=== PATIENT | female | born 1965 | race Caucasian/White ===

== ENCOUNTER 2019-11-27 09:58 | Outpatient (CLI) | payer MEDICARE, MEDICAID, SELFPAY | END 2019-11-27 09:59 | disposition home or self-care (01) | PROVIDERS: PCP Emergency Medicine; Visit Provider Emergency Medicine | DX: E03.9 Hypothyroidism, unspecified (principal) | CPT/HCPCS: 36415; 84443 ==

== ENCOUNTER 2019-11-27 10:06 | Outpatient (CLI) | payer MEDICARE, MEDICAID, SELFPAY ==
[2019-11-27 10:45] LABS: Alanine Aminotransferase 20 U/L (4-35); Albumin Level 3.9 g/dL (3.5-5.1); Alkaline Phosphatase 52 U/L (38-126); Aspartate Amino Transferase 23 U/L (14-36); Bilirubin,Total 0.5 mg/dL (0.2-1.3)
== END 2019-11-27 10:07 | disposition home or self-care (01) ==
PROVIDERS: PCP Emergency Medicine; Visit Provider Podiatrist Foot & Ankle Surgery
DX: B35.1 Tinea unguium (principal)
CPT/HCPCS: 36415; 80076; 84443

== ENCOUNTER 2019-12-30 12:29 | Outpatient (CLI) | payer MEDICARE, MEDICAID, SELFPAY ==
[2019-12-30 13:13] LABS: Alanine Aminotransferase 17 U/L (4-35); Alkaline Phosphatase 47 U/L (38-126); Aspartate Amino Transferase 22 U/L (14-36); Bilirubin,Total 0.7 mg/dL (0.2-1.3); Blood Urea Nitrogen 20 mg/dL (7-17); Calcium 8.4 mg/dL (8.4-10.2); Carbon Dioxide 27 mmol/L (22-30); Chloride 103 mmol/L (98-107); Estimated Glomerular Filt Rate 58; Glucose 86 mg/dL (65-105); Potassium 3.6 mmol/L (3.4-5.0); Sodium 138 mmol/L (137-145)
== END 2019-12-30 12:30 | disposition home or self-care (01) ==
PROVIDERS: Visit Provider Emergency Medicine
DX: E78.5 Hyperlipidemia, unspecified (principal); B35.1 Tinea unguium
CPT/HCPCS: 36415; 80053; 82248

== ENCOUNTER 2020-08-09 17:10 | Emergency (ER) | payer MEDICARE, MEDICAID, SELFPAY ==
[2020-08-09 17:19] VITALS: BP 132/80; PULSE 91; RESP 16; TEMP 36.6; O2SAT 100
--- NOTE | 2020-08-09 17:30 | ED.GENADULT ---
HPI - General Adult General Chief complaint: Ear Stated complaint: Ear Pain Time Seen by Provider: 08/09/20 17:30 Source: patient and RN notes reviewed Mode of arrival: ambulatory Limitations: no limitations History of Present Illness HPI narrative: 55-year-old female presents with complaints of bilateral otalgia, RT ear fullness feeling for the past 5-7 days. Symptoms increasing over the last 24-48 hours with decrease hearing to RT ear. Debrox without relief. Denies drainage or tinnitus. Denies injury to ear. No rhinorrhea and nasal congestion. LMP hysterectomy. The patient reports she have not been diagnosed with COVID-19. The patient reports she is not waiting for the results of a COVID-19 lab test. The patient reports she do not have fever, chills, weakness, or fatigue. The patient reports she do not have a new or worsening cough or shortness of breath. Denies chest pain. The patient reports she do not have any rhinorrhea, congestion, sore throat, loss of taste, nausea, vomiting, abdominal pain, and diarrhea. Tolerating po intake well. Denies recent traveling. Denies concerns for COVID-19 or exposures been home with limited outdoor exposure except for essential household needs, work, and return home. At this time, patient is not suspected of having COVID-19. Some parts of this dictation were generated by voice recognition software and may contain typographical and/or grammatical inaccuracies. Related Data Home Medications Medication Instructions Recorded Confirmed estradiol 2 mg tablet 2 mg PO DAILY 09/12/19 08/09/20 topiramate 25 mg tablet 25 mg PO BID 09/12/19 08/09/20 oxycodone-acetaminophen 5 mg-325 1 tablet PO TID PRN tablet 11/26/19 08/09/20 mg tablet Allergies Allergy/AdvReac Type Severity Reaction Status Date / Time nitrofurantoin Allergy Unknown Hives Verified 08/09/20 17:26 NITROFURANTOIN MACROCRYSTAL Allergy Mild Hives Uncoded 08/09/20 17:26 Review of Systems Review of Systems: Narrative: CONSTITUTIONAL: Denies fever, chills, sweats. EYES: Denies visual changes, redness, discharge. ENT: Denies sore throat, rhinorrhea, congestion, ear drainage. Complains of bilateral otalgia, RT ear decrease hearing. CARDIOVASCULAR: Denies chest pain, palpitations, edema. RESPIRATORY: Denies dyspnea, wheezing, cough. GASTROINTESTINAL: Denies abdominal pain, nausea, vomiting, diarrhea. SKIN: Denies rash or itching. MUSCULOSKELETAL: Denies acute back pain, joint pain, or myalgia. NEUROLOGIC: Denies numbness or focal weakness. PSYCHIATRIC: Denies anxiety or depression. All systems reviewed & are unremarkable except as noted in HPI and below. PENDING SALE TO [facility] Past Medical History Medical History (Updated 08/10/20 @ 00:00 by Godfrey Lopez) B12 deficiency delivery delivered Chronic pain Depression Hypothyroidism (acquired) Mucocele of lower lip Ovarian cyst Surgical History Surgical History (Updated 08/09/20 @ 17:55 by FABRICIO Abraham) H/O section History of cholecystectomy History of colonoscopy History of esophagogastroduodenoscopy History of exploratory laparotomy History of hysterectomy Family History Family History Mother Cerebrovascular accident Family history of diabetes mellitus in first degree relative Diabetes mellitus Family history of kidney disease Family history of cardiovascular disease Father Cerebrovascular accident Family history of diabetes mellitus in first degree relative Diabetes mellitus Family history of cardiovascular disease Other Family history of throat cancer Social History Social History (Updated 08/09/20 @ 17:46 by FABRICIO Abraham) Smoking status: Never smoker Tobacco type: cigarettes Second hand tobacco smoke exposure: No Alcohol intake: current Substance use: current Substance use type: marijuana Living arrangements: with family Occupation/
== END 2020-08-09 17:54 | disposition home or self-care (01) ==
PROVIDERS: Emergency Provider Nurse Practitioner Family; PCP Emergency Medicine
DX: H66.92 Otitis media, unspecified, left ear (principal); E03.9 Hypothyroidism, unspecified
CPT/HCPCS: 99213; G0463

== ENCOUNTER 2020-09-07 08:14 | Outpatient (CLI) | payer MEDICARE, MEDICAID, SELFPAY ==
[2020-09-07 08:47] LABS: Basophils Percent Auto 0.6 % (0.2-1.2); Eosinophils Absolute Auto 0.2 K/mm3 (0-0.3); Eosinophils Percent Auto 2.4 % (0-4.4); Hemoglobin 11.5 g/dL (12.0-15.0); Immature Granulocyte Absolute 0.02 K/mm3 (0.00-0.031); Immature Granulocyte Percent A 0.3 % (0-0.5); Lymphocytes Absolute Auto 2.38 K/mm3 (0.9-3.2); Lymphocytes Percent Auto 35.6 % (18.3-44.2); Mean Corpuscular HGB Conc 33.8 g/dl (32-36); Mean Corpuscular Hemoglobin 30.7 pg (26-34); Mean Corpuscular Volume 90.7 fl (80-100); Mean Platelet Volume 10.6 fl (7.4-10.4); Monocytes Absolute Auto 0.4 K/mm3 (0.1-0.6); Monocytes Percent Auto 6.1 % (2.6-8.5); Neutrophils Absolute Auto 3.7 K/mm3 (1.3-6.7); Platelet Count Result 181 k/mm3 (150-375); Red Blood Count 3.75 M/mm3 (4.2-5.4); Red Cell Distribution Width 12.9 % (11.5-14.5); White Blood Count 6.7 K/mm3 (4.5-10.0)
[2020-09-07 09:00] LABS: Alanine Aminotransferase 16 U/L (4-35); Albumin Level 3.6 g/dL (3.5-5.1); Alkaline Phosphatase 46 U/L (38-126); Anion Gap 3 mmol/L (8-16); Aspartate Amino Transferase 25 U/L (14-36); Bilirubin,Total 0.7 mg/dL (0.2-1.3); Blood Urea Nitrogen 23 mg/dL (7-17); Calcium 8.8 mg/dL (8.4-10.2); Carbon Dioxide 33 mmol/L (22-30); Chloride 102 mmol/L (98-107); Cholesterol 146 mg/dL (0-200); Estimated Glomerular Filt Rate 58; Glucose 83 mg/dL (65-105); HDL Direct 97 mg/dL; Sodium 138 mmol/L (137-145); Triglycerides 103 mg/dL (<150)
[2020-09-07 09:10] LABS: LDL Cholesterol Direct 46 mg/dL
== END 2020-09-07 08:15 | disposition home or self-care (01) ==
PROVIDERS: PCP Emergency Medicine; Visit Provider Emergency Medicine
DX: E78.5 Hyperlipidemia, unspecified (principal)
CPT/HCPCS: 36415; 80053; 80061; 84443; 85025

== ENCOUNTER → 2020-12-21 01:16 | Outpatient (CLI) | payer MEDICARE, MEDICAID, SELFPAY ==
[2020-12-21 19:47] LABS: SARS-CoV-2 RNA PCR Negative
== END ==
PROVIDERS: PCP Emergency Medicine; Visit Provider Internal Medicine Gastroenterology
DX: Z01.812 Encounter for preprocedural laboratory examination (principal); Z20.822 Contact with and (suspected) exposure to COVID-19
CPT/HCPCS: C9803; U0003; U0005

== ENCOUNTER 2020-12-24 00:57 | Day surgery (SDC) | payer MEDICARE, MEDICAID, SELFPAY ==
[2020-12-12 13:37] VITALS: BMI 33.2
[2020-12-24 06:57] VITALS: BMI 32.8
--- NOTE | 2020-12-24 07:25 | PM.HPGS ---
History of Present Illness History of Present Illness Consent: Risks, benefits, and alternatives have been discussed and questions answered. Patient agrees to proceed with procedure. Chief complaint: Neoplasm Screening Narrative: Kathy Franco is a 55 year old female referred for change in bowel habits. First the past several years she has had very loose and quite urgent bowel movements. She also has lower abdominal pain and cramping. She had seen a card game operator who performed an exam including ultrasound, and nothing was found. She has had a total hysterectomy in the past. Review of Systems Review of Systems: All systems reviewed & are unremarkable except as noted in HPI and below PMFSH Past Medical History Medical History B12 deficiency delivery delivered Chronic pain Depression Hypothyroidism (acquired) Mucocele of lower lip Ovarian cyst Surgical History Surgical History H/O section History of cholecystectomy History of colonoscopy History of esophagogastroduodenoscopy History of exploratory laparotomy History of hysterectomy Family History Family History Mother Cerebrovascular accident Family history of diabetes mellitus in first degree relative Diabetes mellitus Family history of kidney disease Family history of cardiovascular disease Father Cerebrovascular accident Family history of diabetes mellitus in first degree relative Diabetes mellitus Family history of cardiovascular disease Other Family history of throat cancer Social History Social History Smoking status: Never smoker Tobacco type: cigarettes Second hand tobacco smoke exposure: No Alcohol intake: current Drinks per week: 2 Substance use: current Substance use type: marijuana Living arrangements: alone Additional occupation/education comments: Disable Gender identity (if verbalized by the patient): Female Spiritual care concerns: No Meds Home Medications and Allergies Home Medications Medication Instructions Recorded Confirmed Type estradiol 2 mg tablet 2 mg PO DAILY 09/12/19 12/12/20 History topiramate 25 mg tablet 25 mg PO BID 09/12/19 12/12/20 History oxycodone-acetaminophen 5 mg-325 1 tablet PO TID PRN tablet 11/26/19 12/12/20 History mg tablet phentermine 37.5 mg capsule 37.5 mg PO DAILY #30 cap 11/28/19 12/12/20 Rx alprazolam 0.5 mg tablet 0.5 mg PO BID PRN #60 tablet 04/25/20 12/12/20 Rx levothyroxine 75 mcg tablet See Rx Instructions .ROUTE 06/25/20 12/12/20 Rx .COMPLEX #90 tablet meloxicam 15 mg tablet See Rx Instructions .ROUTE 07/12/20 12/12/20 Rx .COMPLEX #90 tablet fluticasone propionate [Allergy 1 spray NASAL BID #16 ml 08/09/20 12/12/20 Rx Relief (fluticasone)] gabapentin 300 mg capsule See Rx Instructions .ROUTE 11/25/20 12/12/20 Rx .COMPLEX #90 cap spironolactone 25 mg tablet See Rx Instructions .ROUTE 11/29/20 12/12/20 Rx .COMPLEX #90 tablet venlafaxine 150 mg See Rx Instructions .ROUTE 11/29/20 12/12/20 Rx capsule,extended release 24 hr .COMPLEX #180 cap ibuprofen [Motrin] 800 mg PO TID 12/12/20 12/12/20 History sodium,potassium,mag sulfates 17.5 See Rx Instructions PO .COMPLEX 12/12/20 Rx gram-3.13 gram-1.6 gram oral soln #354 ml bupropion HCl 75 mg tablet 75 mg PO BID #180 tablet 12/17/20 Rx tizanidine 4 mg tablet See Rx Instructions .ROUTE 12/17/20 Rx .COMPLEX #180 tablet trazodone 50 mg tablet See Rx Instructions .ROUTE 12/17/20 Rx .COMPLEX #180 tablet Allergies Allergy/AdvReac Type Severity Reaction Status Date / Time nitrofurantoin Allergy Mild Hives Verified 12/24/20 07:12 Exam Resp: Auscultation: clear to auscultation bilaterally Cardio: Rate: regular rate Rhythm: regular rhythm GI: GI Pa
--- NOTE | 2020-12-24 07:29 | WPDANESEPPF ---
Anes - Initial Pre Proc Eval Procedure: Operation Date: 12/24/20 08:00 Proposed Procedures p Screening Colonoscopy - Guzman Rivera MD Date/Time: 12/24/20 07:29 Surgeon: Guzman Rivera MD Pre Op Diagnosis: Neoplasm Screening Patient Data Age: 55 Gender: F Height: 5 ft 9 in Weight: 101 kg Allergies Allergy/AdvReac Type Severity Reaction Status Date / Time nitrofurantoin Allergy Mild Hives Verified 12/24/20 07:12 Home Medications Medication Instructions Recorded Confirmed Type estradiol 2 mg tablet 2 mg PO DAILY 09/12/19 12/12/20 History topiramate 25 mg tablet 25 mg PO BID 09/12/19 12/12/20 History oxycodone-acetaminophen 5 mg-325 1 tablet PO TID PRN tablet 11/26/19 12/12/20 History mg tablet phentermine 37.5 mg capsule 37.5 mg PO DAILY #30 cap 11/28/19 12/12/20 Rx alprazolam 0.5 mg tablet 0.5 mg PO BID PRN #60 tablet 04/25/20 12/12/20 Rx levothyroxine 75 mcg tablet See Rx Instructions .ROUTE 06/25/20 12/12/20 Rx .COMPLEX #90 tablet meloxicam 15 mg tablet See Rx Instructions .ROUTE 07/12/20 12/12/20 Rx .COMPLEX #90 tablet fluticasone propionate [Allergy 1 spray NASAL BID #16 ml 08/09/20 12/12/20 Rx Relief (fluticasone)] gabapentin 300 mg capsule See Rx Instructions .ROUTE 11/25/20 12/12/20 Rx .COMPLEX #90 cap spironolactone 25 mg tablet See Rx Instructions .ROUTE 11/29/20 12/12/20 Rx .COMPLEX #90 tablet venlafaxine 150 mg See Rx Instructions .ROUTE 11/29/20 12/12/20 Rx capsule,extended release 24 hr .COMPLEX #180 cap ibuprofen [Motrin] 800 mg PO TID 12/12/20 12/12/20 History sodium,potassium,mag sulfates 17.5 See Rx Instructions PO .COMPLEX 12/12/20 Rx gram-3.13 gram-1.6 gram oral soln #354 ml bupropion HCl 75 mg tablet 75 mg PO BID #180 tablet 12/17/20 Rx tizanidine 4 mg tablet See Rx Instructions .ROUTE 12/17/20 Rx .COMPLEX #180 tablet trazodone 50 mg tablet See Rx Instructions .ROUTE 12/17/20 Rx .COMPLEX #180 tablet Patient hx anesthesia problems: none Family hx anesthesia problems: none PMFSH Past Medical History Medical History B12 deficiency delivery delivered Chronic pain Depression Hypothyroidism (acquired) Mucocele of lower lip Ovarian cyst Surgical History Surgical History H/O section History of cholecystectomy History of colonoscopy History of esophagogastroduodenoscopy History of exploratory laparotomy History of hysterectomy Family History Family History Mother Cerebrovascular accident Family history of diabetes mellitus in first degree relative Diabetes mellitus Family history of kidney disease Family history of cardiovascular disease Father Cerebrovascular accident Family history of diabetes mellitus in first degree relative Diabetes mellitus Family history of cardiovascular disease Other Family history of throat cancer Social History Social History Smoking status: Never smoker Tobacco type: cigarettes Second hand tobacco smoke exposure: No Alcohol intake: current Drinks per week: 2 Substance use: current Substance use type: marijuana Living arrangements: alone Additional occupation/education comments: Disable Gender identity (if verbalized by the patient): Female Spiritual care concerns: No Anes - Eval Final PreProcedure Day of Procedure 12/24/20 07:29 Patient weight: obese Heart: regular rate and rhythm Airway: Mallampati scale class 1 and class II Neurological: alert and oriented Last oral intake: >/= 8 hours ASA classification: III Emergent: no Anesthetic plan: proceed Anesthesia type and monitoring: general GIVS and standard monitoring Informed Consent: The patient's anesthetic plan and its attendant risks and benefits were discusse
[2020-12-24] MEDS: LACTATED RINGERS 1,000 ML 100 ML IV CONT (07:31)
[2020-12-24 08:25] VITALS: BP 105/69; PULSE 87; RESP 20; O2SAT 100
[2020-12-24 08:35] VITALS: BP 105/69; PULSE 72; RESP 18; O2SAT 100
[2020-12-24 08:45] VITALS: BP 107/67; PULSE 70; RESP 18; O2SAT 100
== END 2020-12-24 09:18 | disposition home or self-care (01) ==
PROVIDERS: PCP Emergency Medicine; Visit Provider Internal Medicine Gastroenterology
PROC: 0DJD8ZZ Inspection of Lower Intestinal Tract, Via Natural or Artificial Opening Endoscopic (ICD-10-PCS; CPT 45378; principal; 2020-12-24 08:00)
DX: K59.1 Functional diarrhea (principal); R10.30 Lower abdominal pain, unspecified; E03.9 Hypothyroidism, unspecified; E53.8 Deficiency of other specified B group vitamins; F32.9 Major depressive disorder, single episode, unspecified; G89.29 Other chronic pain; F12.90 Cannabis use, unspecified, uncomplicated; E66.9 Obesity, unspecified; Z68.32 Body mass index [BMI] 32.0-32.9, adult
CPT/HCPCS: 45380; 88305; C9803; J2704; J7120; U0003; U0005

== ENCOUNTER 2021-01-24 16:05 | Emergency (ER) | payer MEDICARE, MEDICAID, SELFPAY ==
--- NOTE | ~2021-01-24 | US_ITS ---
EXAMINATION: US venous doppler [facility] DATE: 01/24/2021 16:56 INDICATION: Lower limb pain TECHNIQUE: Sihn scale images without and with compression and Doppler images of the bilateral lower e xtremity veins were obtained. COMPARISON: 08/07/2019 FINDINGS: The right common femoral vein, profunda femoral vein, femoral vein, popliteal vein, peroneal trunk, p osterior tibial veins, and greater saphenous vein are patent. The left common femoral vein, profunda femoral vein, femoral vein, popliteal vein, peroneal trunk, po sterior tibial veins, and greater saphenous vein are patent. IMPRESSION: 1. Patent bilateral lower extremity veins. No evidence of deep venous thrombosis. Reviewed, dictated and finalized at location A. IMPRESSION: 1. Patent bilateral lower extremity veins. No evidence of deep venous thrombosi s.
[2021-01-24 16:27] VITALS: BP 116/64; PULSE 97; RESP 18; TEMP 36.3; O2SAT 97
--- NOTE | 2021-01-24 18:37 | ED.GENADULT ---
HPI - General Adult General Chief complaint: Extremity Problem,Nontraumatic <SAL Martinez Last Filed: 01/24/21 18:45> Stated complaint: poss DVT <Ramon Smith PA-C - Last Filed: 01/24/21 18:45> Time Seen by Provider: 01/24/21 17:38 <SAL Martinez Last Filed: 01/24/21 18:45> Source: patient <SAL Martinez Last Filed: 01/24/21 18:45> Mode of arrival: ambulatory <SAL Martinez Last Filed: 01/24/21 18:45> Limitations: no limitations <SAL Martinez Last Filed: 01/24/21 18:45> History of Present Illness HPI narrative: Patient is a 55-year-old female who presents to emergency department for evaluation of right leg pain and redness that began at 1 AM in the morning after she had been lying in bed patient denies injury or trauma notes aching pain presents in no distress has not taken anything for symptoms and is otherwise in no distress on arrival denies similar occurrence in the past. <SAL Martinez Last Filed: 01/24/21 18:45> Related Data Home medications: Home Medications Medication Instructions Recorded Confirmed estradiol 2 mg tablet 2 mg PO DAILY 09/12/19 12/12/20 oxycodone-acetaminophen 5 mg-325 1 tablet PO TID PRN tablet 11/26/19 12/12/20 mg tablet ibuprofen 800 mg PO TID 12/12/20 12/12/20 topiramate 25 mg tablet 25 mg PO DAILY tablet 01/13/21 <SAL Martinez Last Filed: 01/24/21 18:45> Allergies/adverse reactions: Allergies Allergy/AdvReac Type Severity Reaction Status Date / Time nitrofurantoin Allergy Mild Hives Verified 12/24/20 07:12 <SAL Martinez Last Filed: 01/24/21 18:45> Review of Systems Review of Systems: All systems reviewed & are unremarkable except as noted in HPI and below <SAL Martinez Last Filed: 01/24/21 18:45> PMFSH Past Medical History Medical History: Medical History B12 deficiency delivery delivered Chronic pain Depression Hypothyroidism (acquired) Mucocele of lower lip Ovarian cyst <Ramon Smith PA-C - Last Filed: 01/24/21 18:45> Surgical History Surgical History: Surgical History H/O section History of cholecystectomy History of colonoscopy History of esophagogastroduodenoscopy History of exploratory laparotomy History of hysterectomy <Ramon Smith PA-C - Last Filed: 01/24/21 18:45> Family History Family History: Family History Mother Cerebrovascular accident Family history of diabetes mellitus in first degree relative Diabetes mellitus Family history of kidney disease Family history of cardiovascular disease Father Cerebrovascular accident Family history of diabetes mellitus in first degree relative Diabetes mellitus Family history of cardiovascular disease Other Family history of throat cancer <Ramon Smith PA-C - Last Filed: 01/24/21 18:45> Social History Social History: Social History Smoking status: Never smoker Tobacco type: cigarettes Second hand tobacco smoke exposure: No Alcohol intake: current Drinks per week: 2 Substance use: current Substance use type: marijuana Additional occupation/education comments: Disable Gender identity (if verbalized by the patient): Female Spiritual care concerns: No <Ramon Smith PA-C - Last Filed: 01/24/21 18:45> Exam Narrative: Exam Narrative: GENERAL: Well-appearing, well-nourished, and in no acute distress. HEAD: Normocephalic, atraumatic. EYES: PERRLA and EOMI. ENT: Nares clear, no rhinorrhea or epistaxis. Mucous membranes moist. CHEST: Clear to auscultation. No respiratory distress. No wheezes rales or rhonchi HEART: Regular rate and
== END 2021-01-24 18:56 | disposition home or self-care (01) ==
PROVIDERS: Emergency Provider General Practice; PCP Emergency Medicine
DX: L03.115 Cellulitis of right lower limb (principal); E53.8 Deficiency of other specified B group vitamins; G89.29 Other chronic pain; E03.9 Hypothyroidism, unspecified; F32.9 Major depressive disorder, single episode, unspecified
CPT/HCPCS: 93970; 99284

== ENCOUNTER 2021-04-29 16:05 | Emergency (ER) | payer MEDICARE, MEDICAID, SELFPAY ==
--- NOTE | ~2021-04-29 | XR_ITS ---
EXAMINATION: XR chest 2V EXAM DATE: 04/29/2021 16:52 INDICATION: Left-sided chest pain, shortness of breath, symptoms one day. Bilateral lower extremity s welling. TECHNIQUE: Frontal and lateral projections of the chest obtained and reviewed. Comparison is made to prior examination from 08/12/2019. FINDINGS: The lungs are clear. There are no pleural effusions. The cardiomediastinal silhouette is within normal limits. There is no pneumothorax suspected. The bones and soft tissues are unremarkab le. There is no significant interval change. IMPRESSION: Unremarkable chest x-ray exam. Reviewed, dictated and finalized at location A.
[2021-04-29 16:23] VITALS: BP 165/82; PULSE 87; RESP 18; TEMP 36.6; O2SAT 100
--- NOTE | 2021-04-29 16:29 | ECG_ITS ---
Measurements Intervals [place] Rate: 75 P: 61 NM: 148 QRS: 30 QRSD: 89 T: 21 QT: 377 QTc: 422 Interpretive Statements SINUS RHYTHM BASELINE ARTIFACT- I, III, AVR, AVL, AVF, V1-V3 NORMAL ECG Electronically Signed On 04-29-2021 16:43:45 CDT by Shekhar Donovan D.O.
[2021-04-29 16:43] LABS: Basophils Percent Auto 0.6 % (0.2-1.2); Eosinophils Absolute Auto 0.1 K/mm3 (0-0.3); Eosinophils Percent Auto 1.7 % (0-4.4); Hematocrit 36.7 % (37.0-47.0); Immature Granulocyte Absolute 0.04 K/mm3 (0.00-0.031); Immature Granulocyte Percent A 0.6 % (0-0.5); Lymphocytes Absolute Auto 1.48 K/mm3 (0.9-3.2); Lymphocytes Percent Auto 20.5 % (18.3-44.2); Mean Corpuscular HGB Conc 32.7 g/dl (32-36); Mean Corpuscular Hemoglobin 30.4 pg (26-34); Mean Corpuscular Volume 92.9 fl (80-100); Mean Platelet Volume 10.7 fl (7.4-10.4); Monocytes Absolute Auto 0.4 K/mm3 (0.1-0.6); Monocytes Percent Auto 5.5 % (2.6-8.5); Neutrophils Absolute Auto 5.1 K/mm3 (1.3-6.7); Neutrophils Percent Auto 71.1 % (45.5-73.1); Platelet Count Result 205 k/mm3 (150-375); Red Blood Count 3.95 M/mm3 (4.2-5.4); Red Cell Distribution Width 13.2 % (11.5-14.5); White Blood Count 7.2 K/mm3 (4.5-10.0)
[2021-04-29 16:53] LABS: Anion Gap 6 mmol/L (8-16); Blood Urea Nitrogen 21 mg/dL (7-17); Calcium 9.8 mg/dL (8.4-10.2); Carbon Dioxide 32 mmol/L (22-30); Chloride 100 mmol/L (98-107); Estimated CRCL calculation 82 ml/min; Estimated Glomerular Filt Rate > 60; Glucose 94 mg/dL (65-105); Potassium 3.8 mmol/L (3.4-5.0); Sodium 138 mmol/L (137-145)
[2021-04-29 16:55] LABS: INR 0.9; Prothrombin Time 12.3 Seconds (11.1-14.7)
[2021-04-29 16:57] LABS: Partial Thromboplastin Time 23.2 SECONDS (22.3-36.8)
[2021-04-29 17:05] LABS: Troponin I < 0.012 ng/mL (0.000-0.034)
[2021-04-29 21:02] VITALS: BP 149/83; PULSE 70; RESP 12; TEMP 36.7; O2SAT 100
--- NOTE | 2021-04-29 21:11 | ED.EXTPRO ---
HPI - Extremity Problem General Chief complaint: Extremity Problem,Nontraumatic Stated complaint: lower leg swelling Time Seen by Provider: 04/29/21 20:59 Source: patient and RN notes reviewed Mode of arrival: ambulatory Limitations: no limitations History of Present Illness HPI Narrative: This is a 55 year old female who presents for evaluation of leg swelling. Patient states she developed feet and leg swelling 6 days ago and it has progressively worsened. She states she has previous issue with leg swelling, and she has been prescribed spironolactone. She denies history of chf. She states her legs have never remained swollen for this long before. She also reports she developed shortness or breath and left chest pain this afternoon while she was at the [facility]. She was walking up and down stairs. She describes her left chest pain as nonradiating and constant pressure. She reports previous history of mild shortness of breath with walking up stairs that has been chronic. Denies cardiac disease. Related Data Home Medications Medication Instructions Recorded Confirmed estradiol 2 mg tablet 2 mg PO DAILY 09/12/19 12/12/20 oxycodone-acetaminophen 5 mg-325 1 tablet PO TID PRN tablet 11/26/19 12/12/20 mg tablet ibuprofen 800 mg PO TID 12/12/20 12/12/20 topiramate 25 mg tablet 25 mg PO DAILY tablet 01/13/21 Allergies Allergy/AdvReac Type Severity Reaction Status Date / Time nitrofurantoin Allergy Mild Hives Verified 04/29/21 16:31 Review of Systems Review of Systems: All systems reviewed & are unremarkable except as noted in HPI and below PMFSH Past Medical History Medical History B12 deficiency delivery delivered Chronic pain Depression Hypothyroidism (acquired) Mucocele of lower lip Ovarian cyst Surgical History Surgical History H/O section History of cholecystectomy History of colonoscopy History of esophagogastroduodenoscopy History of exploratory laparotomy History of hysterectomy Family History Family History Mother Cerebrovascular accident Family history of diabetes mellitus in first degree relative Diabetes mellitus Family history of kidney disease Family history of cardiovascular disease Father Cerebrovascular accident Family history of diabetes mellitus in first degree relative Diabetes mellitus Family history of cardiovascular disease Other Family history of throat cancer Social History Social History Smoking status: Never smoker Tobacco type: cigarettes Second hand tobacco smoke exposure: No Alcohol intake: current Drinks per week: 2 Substance use: current Substance use type: marijuana Additional occupation/education comments: Disable Gender identity (if verbalized by the patient): Female Spiritual care concerns: No Exam Const: General: no acute distress and alert Orientation/consciousness: patient oriented x3 Eyes: EOM: EOMs intact bilaterally Chest: Chest palpation & inspection: normal inspection of the chest Resp: Effort & Inspection: normal respiratory effort and no retractions Auscultation: clear to auscultation bilaterally Cardio: Rate: regular rate Rhythm: regular rhythm Heart sounds: no murmurs GI: GI Palp: Yes Soft to palpation, No Tenderness to palpation present (GI) and No Guarding due to palpation present (GI) Auscultation: normal bowel sounds Skin: General skin exam: normal color Rashes: no rashes Neuro: General: patient oriented x3 and moves all extremities Extrem: Other: bilateral feet and leg swelling, trac pitting edema Psych: Mental Status: mental status grossly normal Affect: normal affect Course Reevaluation(s) Reevaluation #1: I have discussed patient lab
[2021-04-29] MEDS: NITROGLYCERIN SL 0.4 MG TABLET SUBLINGUAL (21:26)
[2021-04-29] MEDS: FUROSEMIDE INJ 40 MG/4 ML VIAL IV PUSH (21:27)
[2021-04-29 21:48] LABS: D Dimer 0.35 ug/mL (<0.48)
[2021-04-29 21:54] LABS: NT Pro B Type Natriuretic Pept 346 pg/mL (5-100); Troponin I < 0.012 ng/mL (0.000-0.034)
[2021-04-29 22:51] VITALS: BP 136/86; PULSE 70; O2SAT 99
--- NOTE | 2021-04-29 23:00 | PC.NURSE ---
per EDP brennan another tab of nitroglycerin was given at this time.
[2021-04-29 23:46] VITALS: BP 147/81; PULSE 70; O2SAT 98
== END 2021-04-29 23:45 | disposition home or self-care (01) ==
PROVIDERS: Emergency Medicine; Emergency Provider General Practice; PCP Emergency Medicine
DX: R60.0 Localized edema (principal); R07.9 Chest pain, unspecified; E03.9 Hypothyroidism, unspecified; E53.8 Deficiency of other specified B group vitamins; F32.9 Major depressive disorder, single episode, unspecified; R06.02 Shortness of breath
CPT/HCPCS: 36415; 71046; 80048; 83880; 84484; 85025; 85380; 85610; 85730; 93005; 96374; 99284; A9270; J1940

== ENCOUNTER 2021-09-21 17:20 | Emergency (ER) | payer OTHER, SELFPAY ==
[2021-09-21] VITALS (40 sets, daily range): BP systolic 106–145; BP diastolic 56–93; PULSE 74–88; RESP 9–17; TEMP 36.1; O2SAT 90–100
--- NOTE | 2021-09-21 17:25 | ECG_ITS ---
Measurements Intervals [place] Rate: 81 P: 65 AK: 158 QRS: 33 QRSD: 97 T: 17 QT: 417 QTc: 484 Interpretive Statements SINUS RHYTHM POSSIBLE LEFT ATRIAL ENLARGEMENT BORDERLINE ECG Electronically Signed On 09-21-2021 20:28:39 [employer] by Shekhar Donovan D.O.
--- NOTE | 2021-09-21 17:31 | ED.GENADULT ---
HPI - General Adult General Chief complaint: Overdose <Tamra Escalante MD - Last Filed: 09/22/21 11:14> Stated complaint: OD <Tamra Escalante MD - Last Filed: 09/22/21 11:14> Time Seen by Provider: 09/21/21 17:21 <Tamra Escalante MD - Last Filed: 09/22/21 11:14> Source: patient <Tamra Escalante MD - Last Filed: 09/22/21 11:14> History of Present Illness HPI narrative: Patient is a 56 y/o female brought in by EMS for overdose. She states that she feels depressed and took some Oxycodone and Trazdone. She then call her daughter who called EMS. She states that she feels tired. She denies any pain. <Tamra Escalante MD - Last Filed: 09/22/21 11:14> Related Data Home medications: Home Medications Medication Instructions Recorded Confirmed estradiol 2 mg tablet 2 mg PO DAILY 09/12/19 12/12/20 topiramate 25 mg tablet 25 mg PO DAILY tablet 01/13/21 sertraline 25 mg tablet 25 mg PO DAILY 07/21/21 <Tamra Escalante MD - Last Filed: 09/22/21 11:14> Allergies/adverse reactions: Allergies Allergy/AdvReac Type Severity Reaction Status Date / Time nitrofurantoin Allergy Mild Hives Verified 09/21/21 17:28 <Tamra Escalante MD - Last Filed: 09/22/21 11:14> Review of Systems Constitutional: Constitutional: Denies chills, Reports fatigue, Denies fever(s), Denies headache(s) and Reports weakness <Tamra Escalante MD - Last Filed: 09/22/21 11:14> Eyes: Eyes: Denies blurry vision <Tamra Escalante MD - Last Filed: 09/22/21 11:14> ENT: Denies headache(s) and Denies neck pain <Tamra Escalante MD - Last Filed: 09/22/21 11:14> Cardiovascular: Cardiovascular: Denies chest pain and Denies dyspnea <Tamra Escalante MD - Last Filed: 09/22/21 11:14> Respiratory: Respiratory: Denies cough and Denies dyspnea <Tamra Escalante MD - Last Filed: 09/22/21 11:14> Gastrointestinal: Gastrointestinal: Denies abdominal pain, Denies diarrhea, Denies nausea and Denies vomiting <Tamra Escalante MD - Last Filed: 09/22/21 11:14> Genitourinary: Genitourinary: Denies hematuria and Denies dysuria <Tamra Escalante MD - Last Filed: 09/22/21 11:14> Musculoskeletal: Musculoskeletal: Denies back pain and Denies neck pain <Tamra Escalante MD - Last Filed: 09/22/21 11:14> Neurologic: Denies headache(s) and Denies weakness <Tamra Escalante MD - Last Filed: 09/22/21 11:14> Psychiatric: Psychiatric: Reports depression <Tamra Escalante MD - Last Filed: 09/22/21 11:14> [facility] Past Medical History Medical History: Medical History B12 deficiency delivery delivered Chronic pain Depression Hypothyroidism (acquired) Mucocele of lower lip Ovarian cyst <Tamra Escalante MD - Last Filed: 09/22/21 11:14> Surgical History Surgical History: Surgical History H/O section History of cholecystectomy History of colonoscopy History of esophagogastroduodenoscopy History of exploratory laparotomy History of hysterectomy <Tamra Escalante MD - Last Filed: 09/22/21 11:14> Family History Family History: Family History Mother Cerebrovascular accident Family history of diabetes mellitus in first degree relative Diabetes mellitus Family history of kidney disease Family history of cardiovascular disease Father Cerebrovascular accident Family history of diabetes mellitus in first degree relative Diabetes mellitus Family history of cardiovascular disease Other Family history of throat cancer <Tamra Escalante MD - Last Filed: 09/22/21 11:14> Social History Social History: Social History Smoking status: Never smoker Tobacco type: cigarettes Second hand tobacco smoke exposure: No Alcohol intake: current Drinks per week: 2 Substance use: current Substance use type: sedatives a
[2021-09-21 18:25] LABS: Basophils Absolute Auto 0.1 K/mm3 (0.0-0.1); Basophils Percent Auto 0.7 % (0.2-1.2); Eosinophils Absolute Auto 0.2 K/mm3 (0-0.3); Eosinophils Percent Auto 2.1 % (0-4.4); Hematocrit 40.8 % (37.0-47.0); Hemoglobin 13.9 g/dL (12.0-15.0); Immature Granulocyte Absolute 0.04 K/mm3 (0.00-0.031); Immature Granulocyte Percent A 0.5 % (0-0.5); Lymphocytes Absolute Auto 1.94 K/mm3 (0.9-3.2); Lymphocytes Percent Auto 25.7 % (18.3-44.2); Mean Corpuscular HGB Conc 34.1 g/dl (32-36); Mean Corpuscular Volume 93.8 fl (80-100); Mean Platelet Volume 10.4 fl (7.4-10.4); Monocytes Absolute Auto 0.5 K/mm3 (0.1-0.6); Monocytes Percent Auto 6.2 % (2.6-8.5); Neutrophils Absolute Auto 4.9 K/mm3 (1.3-6.7); Neutrophils Percent Auto 64.8 % (45.5-73.1); Platelet Count Result 180 k/mm3 (150-375); Red Blood Count 4.35 M/mm3 (4.2-5.4); Red Cell Distribution Width 13.7 % (11.5-14.5); White Blood Count 7.6 K/mm3 (4.5-10.0)
[2021-09-21 18:47] LABS: Alanine Aminotransferase 21 U/L (4-35); Albumin Level 4.4 g/dL (3.5-5.1); Alkaline Phosphatase 75 U/L (38-126); Anion Gap 6 mmol/L (8-16); Aspartate Amino Transferase 29 U/L (14-36); Bilirubin,Total 0.5 mg/dL (0.2-1.3); Blood Urea Nitrogen 22 mg/dL (7-17); Calcium 9.3 mg/dL (8.4-10.2); Carbon Dioxide 26 mmol/L (22-30); Chloride 100 mmol/L (98-107); Estimated CRCL calculation 53 ml/min; Estimated Glomerular Filt Rate 58; Glucose 93 mg/dL (65-110); Potassium 3.8 mmol/L (3.4-5.0); Sodium 132 mmol/L (137-145)
[2021-09-21 18:58] LABS: Acetaminophen < 10 ug/mL (10-30); Ethanol < 10 mg/dL (<10); Salicylate < 1.0 mg/dL (2-20)
[2021-09-21 19:23] LABS: Add Urine Microscopic? YES; Appearance Urine Clear (Clear); Bilirubin Urine Negative (Negative); Blood Urine Negative (Negative); Color Urine Straw (Yellow); Glucose Urine UA Negative (Negative); Ketones Urine Negative (Negative); Leukocyte Esterase Ur Negative LEU/UL (Negative); Mucus Urine Rare /lpf; Nitrate Urine Positive (Negative); Protein Urine Negative (Negative); RBC Urine 0-2 /hpf (0-2); Specific Grav Ur 1.008 (1.001-1.035); Squamous Epithelial Cell Urine Occasional /hpf (Few); Urobilinogen Urine Negative mg/dL (<2.0); WBC Urine 0-3 /hpf
[2021-09-21 19:41] LABS: Amphetamine Screen Urine Negative (Negative); Barbiturate Screen Urine Negative (Negative); Benzodiazepines Screen Urine Negative (Negative); Cannabinoid Screen Urine Negative (Negative); Cocaine Screen Urine Negative (Negative); Methadone Screen Urine Negative (Negative); Opiate Screen Urine Negative (Negative); Phencyclidine Screen Urine Negative (Negative)
--- NOTE | 2021-09-21 23:21 | PC.NURSE ---
Report received from PATRICIO Craig. Assumed care of patient at this time. Sitter at bedside. Patient resting comfortably on stretcher.
[2021-09-22] VITALS (45 sets, daily range): BP systolic 92–141; BP diastolic 54–85; PULSE 73–94; RESP 9–28; TEMP 36.3–36.7; O2SAT 94–100
--- NOTE | 2021-09-22 00:02 | PC.NURSE ---
Patient unable to hold a conversation at this time. Patient easily to wake,but falls back asleep quickly. ERP notified.
--- NOTE | 2021-09-22 03:16 | PC.NURSE ---
Patient medically cleared, crisis called.
--- NOTE | 2021-09-22 06:23 | PC.NURSE ---
Patient no longer on 2L NC.
--- NOTE | 2021-09-22 06:53 | PC.NURSE ---
Patient awake in room stating she wants to go home. This nurse informed her that she is involuntary and that she is waiting for placement. Patient states she is uncomfortable. Patient repositioned, given ice water and slipper socks. Patient states she is more comfortable.
--- NOTE | 2021-09-22 12:29 | PC.NURSE ---
ed physician requests that iv site not be d/c per pt request. will inform pt
--- NOTE | 2021-09-22 12:30 | PCCCNOTE ---
Addendum entered by Ivanna Estvees RN 09/22/21 15:22: Late entry: [facility] intake needed new front sheet of involuntary form, faxed as requested. Patient has been accepted Bed 332 B. Will need rapid covid, rapid covid negative. Fax'd to facility. Bedside RN called report. [facility] will transport. Called to [facility] and notified that patient has a bed at [facility] with a rapid test and PCR is still pending. Will no longer need bed. Addendum entered by Ivanna Esteves RN 09/22/21 13:03: Intake called back from [facility], and wanting to know if patient is still suicidal. Transferred to ED to speak with Bedside PATRICIO Chavez. Original Note: Called to [facility], and they do have beds available. Faxed referral to [phone] as directed. Provided contact details for return call.
[2021-09-22] MEDS: ACETAMINOPHEN 500 MG TABLET 1000 MG PO (12:33)
--- NOTE | 2021-09-22 15:20 | PC.NURSE ---
[facility] has arrived
--- NOTE | 2021-09-22 15:24 | PC.NURSE ---
pt very tearful regarding transfer to [facility].
[2021-09-22 19:11] LABS: SARS-CoV-2 RNA PCR Negative
== END 2021-09-22 15:30 ==
PROVIDERS: Emergency Medicine; Emergency Provider Emergency Medicine; PCP Emergency Medicine
DX: T40.2X2A Poisoning by other opioids, intentional self-harm, initial encounter (principal); T43.212A Poisoning by selective serotonin and norepinephrine reuptake inhibitors, intentional self-harm, initial encounter; Z20.822 Contact with and (suspected) exposure to COVID-19; E53.8 Deficiency of other specified B group vitamins; F32.A Depression, unspecified; E03.9 Hypothyroidism, unspecified; G89.29 Other chronic pain; R94.31 Abnormal electrocardiogram [ECG] [EKG]
CPT/HCPCS: 36415; 80053; 80307; 81001; 84443; 85025; 87426; 93005; 99285; A9270; C9803; U0003; U0005

== ENCOUNTER 2021-10-14 09:36 | Outpatient (CLI) | payer OTHER, SELFPAY ==
--- NOTE | ~2021-10-14 | MM_ITS ---
EXAMINATION: MM screening carmela BI w benny HISTORY: Screening TECHNIQUE: Craniocaudal and mediolateral oblique 3-D tomosynthesis images were obtained and synthetic 2-D images were generated. CAD analysis was submitted and interpreted. COMPARISON: Comparison to multiple prior studies sequentially, with oldest reviewed study dated 07/19. BREAST PARENCHYMAL COMPOSITION: There are scattered areas of fibroglandular density. FINDINGS: There is no evidence of suspicious mass, calcification, or architectural distortion to sugg est malignancy in either breast. There has been no suspicious interval change. IMPRESSION: 1. No mammographic evidence of malignancy. 2. Recommend routine screening mammography in one year. BI-RADS Category 1: Negative Reviewed, dictated and finalized at location A. GE MANAGEMENT DIRECTOR
== END 2021-10-14 09:37 | disposition home or self-care (01) ==
LOC: ANHIMG 09:38
PROVIDERS: PCP Emergency Medicine; Visit Provider Obstetrics & Gynecology
DX: Z12.31 Encounter for screening mammogram for malignant neoplasm of breast (principal)
CPT/HCPCS: 77063; 77067

== ENCOUNTER 2021-12-27 10:27 | Outpatient (CLI) | payer MEDICARE, MEDICAID, SELFPAY ==
--- NOTE | ~2021-12-27 | MR_ITS ---
EXAMINATION: MR brain/brain stem wo/w con DATE: 12/27/2021 12:25 INDICATION: Disorder of brain, unspecified. Headache. TECHNIQUE: Magnetic resonance imaging (MRI) of the brain and brainstem was performed without and with 20 mL MultiHance intravenous contrast. Sequences included sagittal and axial T1-weighted FSE, axial diffusion-weighted FS EPI, axial T2*-weighted GRE, axial T2-weighted FLAIR Propeller, and axial T2-we ighted Propeller. Postcontrast sequences included axial, sagittal, and coronal T1-weighted FSE. Appar ent diffusion coefficient (ADC) maps were created. COMPARISON: Brain MRI 12/05/2007, head CT 12/03/2018 FINDINGS: There are scattered areas of nonspecific increased T2-weighted signal intensity in the cere bral white matter, which is within normal limits for the patient's age. There is no intracranial hemo rrhage, acute infarction, or abnormal intracranial mass lesion. The ventricles are normal in size. Th ere is a trace left mastoid effusion. There is mild mucosal thickening in left maxillary sinus. The o rbits are normal. IMPRESSION: 1. Normal aging brain. Reviewed, dictated and finalized at location A. OR GAMEMASTER IMPRESSION: 1. Normal aging brain.
[2021-12-27 12:03] LABS: Estimated Glomerular Filt Rate 58
== END 2021-12-27 10:28 | disposition home or self-care (01) ==
LOC: ANHIMG 10:37
PROVIDERS: PCP Emergency Medicine; Visit Provider Emergency Medicine
DX: G93.9 Disorder of brain, unspecified (principal)
CPT/HCPCS: 70553; A9577

== ENCOUNTER 2022-05-14 09:53 | Emergency (ER) | payer MEDICARE, MEDICAID, SELFPAY ==
--- NOTE | ~2022-05-14 | CT_ITS ---
EXAMINATION: CT abdomen pelvis w con DATE: 05/14/2022 11:11 INDICATION: Nausea and diarrhea. TECHNIQUE: Computed tomography (CT) of the abdomen and pelvis was performed with 100 mL Omnipaque-300 intravenous contrast. Automated exposure control and iterative reconstruction technique were employe d. The dose-length product was 1228.26 mGy-cm. COMPARISON: None FINDINGS: Lung bases are clear. Heart size is normal. No pericardial or pleural effusion. Mild dilation of the common hepatic duct to 9 mm along with mild intrahepatic biliary ductal dilation, both findings which are within normal limits post cholecystectomy with surgical clips the gallbladder fossa. Mild focal hepatic steatosis along the ligamentum teres. Spleen, pancreas, bilateral adrenal glands and kidneys are normal. Normal appendix. Small amount of liquid stool throughout much of the otherwise normal-mario earing colon consistent with nonspecific diarrhea. No abnormal bowel wall thickening or obstruction. Diffuse mild wall thickening of the bladder likely related to partially decompressed state but would correlate with urinalysis as cystitis could appear similarly. The uterus is not identified and has kendall demarco been surgically resected. No free intraperitoneal gas or fluid. No pathologically enlarged abdom inal or pelvic lymphadenopathy. Moderate to severe spondylosis at L5-S1. Mild spondylosis of the more cephalad lumbar and lower thoracic spine. IMPRESSION: 1. Mild intra and extra hepatic biliary ductal dilation which is within normal limits post cholecyste ctomy. Correlate with liver function tests. 2. Liquid stool throughout much of the normal-appearing colon consistent with nonspecific diarrhea. C orrelate for gastroenteritis. 3. Diffuse mild wall thickening of the partially decompressed bladder which may be due to decompresse d state but would correlate with urinalysis to exclude cystitis which could appear similarly. Reviewed, dictated and finalized at location A. IMPRESSION: 1. Mild intra and extra hepatic biliary ductal dilation which is within normal limits post cholecystectomy. Correlate with liver function tests. 2. Liquid stool throughout much of the normal-appearing colon consistent with n onspecific diarrhea. Correlate for gastroenteritis. 3. Diffuse mild wall thickening of the partially decompressed bladder which may be due to decompressed state but would correlate with urinalysis to exclude cy stitis which could appear similarly.
--- NOTE | 2022-05-14 10:11 | ED.ABDPAIN ---
HPI - Abdominal Pain General Chief Complaint: Nausea/Vomiting/Diarrhea Stated Complaint: diarrhea Time Seen by Provider: 05/14/22 09:54 Source: patient Mode of arrival: ambulatory Limitations: no limitations History of Present Illness HPI narrative: Patient is a 56 y/o female who presents to the ED with c/o diarrhea. Patient reports having diarrhea X 8 days, since last Wednesday. She states her stool has been very watery and she has had several episodes of diarrhea per day. She has been taking Imodium at home with minimal relief. No blood in stool that she was able to appreciate. She was seen in urgent care last week and was told she had a UTI. She was prescribed Keflex at that time and has been taking this as directed. She was also given Zofran. She does report nausea, but denies vomiting. She also reports diffuse abdominal cramping, but has not taken anything for this. Denies any fever, chills, hematuria, cough, cold symptoms. Related Data Home Medications Medication Instructions Recorded Confirmed estradiol 2 mg tablet 2 mg PO DAILY 09/12/19 11/24/21 topiramate 25 mg tablet (Topamax) 25 mg PO DAILY 01/13/21 11/24/21 aripiprazole 5 mg tablet 5 mg PO DAILY 11/24/21 11/24/21 Allergies Allergy/AdvReac Type Severity Reaction Status Date / Time nitrofurantoin Allergy Mild Hives Verified 05/14/22 10:22 Review of Systems Review of Systems: CONSTITUTIONAL: Denies fever, chills, or sweats. ENT: Denies rhinorrhea, congestion, sore throat. CARDIOVASCULAR: Denies chest pain. RESPIRATORY: Denies cough or dyspnea. GASTROINTESTINAL: Reports diffuse abdominal pain, nausea, diarrhea. Denies vomiting, rectal bleeding. GENITOURINARY: Reports dysuria. Denies hematuria. All systems reviewed & are unremarkable except as noted in HPI and below PMFSH Past Medical History Medical History Abnormal weight gain Acute bacterial sinusitis Acute cystitis with hematuria Acute non-recurrent frontal sinusitis Acute right-sided low back pain with sciatica Anemia, unspecified Anxiety and depression B12 deficiency Back pain with sciatica BMI 33.0-33.9,adult BMI 35.0-35.9,adult Body mass index [BMI] 29.0-29.9, adult (11/22/17) Body mass index [BMI] 30.0-30.9, adult (02/28/18) Body mass index [BMI] 31.0-31.9, adult (12/20/17) Cellulitis of right lower leg delivery delivered Chronic bilateral low back pain without sciatica Chronic nonintractable headache Chronic pain Chronic UTI Depression Dislocation of great toe, left, open Dislocation of great toe, left, open Disorder of kidney and ureter, unspecified Dizziness Dorsalgia, unspecified Edema, unspecified Elevated liver enzymes Fatigue Ganglion cyst Hypothyroidism (acquired) Intervertebral disc disorder with radiculopathy of lumbar region Intracranial space-occupying lesion Iron deficiency anemia Localized edema Low sodium levels Moderate single current episode of major depressive disorder Mucocele of lower lip Mucous cyst of finger Other chronic pain Ovarian cyst Pain and swelling of left lower leg Pain and swelling of right lower leg Sweat, sweating, excessive Temporary low platelet count Unspecified Escherichia coli [E. coli] as the cause of diseases classified elsewhere Unspecified open wound of left great toe without damage to nail, initial encounter Upper respiratory tract infection Vitamin D deficiency Surgical History Surgical History H/O section History of cholecystectomy History of colonoscopy History of esophagogastroduodenoscopy History of exploratory laparotomy History of hysterectomy Family History Family History Mother Cerebrovascular accident Family history of diabetes mellitus in first degree relative Diabetes mellitus Family history of kidney disease Family history of cardiovascu
[2022-05-14 10:16] VITALS: BP 104/73; PULSE 57; RESP 14; O2SAT 96
[2022-05-14 10:20] VITALS: BP 104/73
[2022-05-14 10:20] LABS: Basophils Percent Auto 0.4 % (0.2-1.2); Eosinophils Absolute Auto 0.1 K/mm3 (0-0.3); Eosinophils Percent Auto 1.1 % (0-4.4); Hematocrit 40.1 % (37.0-47.0); Hemoglobin 13.6 g/dL (12.0-15.0); Immature Granulocyte Absolute 0.05 K/mm3 (0.00-0.031); Immature Granulocyte Percent A 0.7 % (0-0.5); Lymphocytes Absolute Auto 2.13 K/mm3 (0.9-3.2); Lymphocytes Percent Auto 29.8 % (18.3-44.2); Mean Corpuscular HGB Conc 33.9 g/dl (32-36); Mean Corpuscular Volume 91.3 fl (80-100); Mean Platelet Volume 9.8 fl (7.4-10.4); Monocytes Absolute Auto 0.4 K/mm3 (0.1-0.6); Neutrophils Absolute Auto 4.4 K/mm3 (1.3-6.7); Platelet Count Result 206 k/mm3 (150-375); Red Blood Count 4.39 M/mm3 (4.2-5.4); Red Cell Distribution Width 13.2 % (11.5-14.5); White Blood Count 7.1 K/mm3 (4.5-10.0)
[2022-05-14 10:35] LABS: Alanine Aminotransferase 111 U/L (6-35); Albumin Level 4.1 g/dL (3.5-5.1); Alkaline Phosphatase 127 U/L (38-126); Anion Gap 10 mmol/L (8-16); Aspartate Amino Transferase 44 U/L (14-36); Bilirubin,Total 0.9 mg/dL (0.2-1.3); Blood Urea Nitrogen 21 mg/dL (7-17); Calcium 8.8 mg/dL (8.4-10.2); Carbon Dioxide 24 mmol/L (22-30); Chloride 103 mmol/L (98-107); Estimated CRCL calculation 67 ml/min; Estimated Glomerular Filt Rate 52; Glucose 101 mg/dL (65-110); Lipase 78 U/L (23-300); Potassium 3.6 mmol/L (3.4-5.0); Sodium 137 mmol/L (137-145)
[2022-05-14] MEDS: ONDANSETRON INJ 4 MG/2 ML VIAL IV PUSH (10:51)
[2022-05-14] MEDS: SODIUM CHLORIDE 0.9% IV 1,000 ML 999 ML IV CONT (10:51)
[2022-05-14] MEDS: DICYCLOMINE HCL 10 MG CAPSULE 20 MG PO (10:52)
[2022-05-14 10:55] LABS: Appearance Urine Cloudy (Clear); Bilirubin Urine 1+ (Negative); Blood Urine Negative (Negative); Glucose Urine UA Negative (Negative); Ketones Urine Trace mg/dL (Negative); Leukocyte Esterase Ur Negative LEU/UL (Negative); Nitrate Urine Negative (Negative); Protein Urine 1+ mg/dL (Negative); Specific Grav Ur >= 1.030 (1.001-1.035); Urobilinogen Urine 0.2 mg/dL (<2.0)
[2022-05-14 11:08] LABS: Bacteria Urine 3+ /hpf; Mucus Urine Heavy /lpf; Squamous Epithelial Cell Urine Many /hpf (Few); WBC Urine 16-20 /hpf
[2022-05-14 11:51] LABS: Add Urine Microscopic? YES; Color Urine Dark Yellow (Yellow)
[2022-05-14 13:05] VITALS: BP 114/64; PULSE 59; RESP 14; O2SAT 98
[2022-05-14 13:22] VITALS: BP 112/67; PULSE 50; RESP 12; TEMP 36.2; O2SAT 98
== END 2022-05-14 13:41 | disposition home or self-care (01) ==
PROVIDERS: Physician Assistant; Emergency Provider Emergency Medicine; PCP Emergency Medicine
DX: K52.9 Noninfective gastroenteritis and colitis, unspecified (principal); N30.01 Acute cystitis with hematuria; R74.01 Elevation of levels of liver transaminase levels; E03.9 Hypothyroidism, unspecified; E53.8 Deficiency of other specified B group vitamins; D50.9 Iron deficiency anemia, unspecified; E55.9 Vitamin D deficiency, unspecified; M54.9 Dorsalgia, unspecified; G89.29 Other chronic pain; F32.A Depression, unspecified; F41.9 Anxiety disorder, unspecified; Z90.710 Acquired absence of both cervix and uterus
CPT/HCPCS: 36415; 74177; 80053; 81001; 83690; 85025; 87086; 96361; 96365; 96375; 99284; A9270; J0131; J2405; J7030; Q9967

== ENCOUNTER 2022-05-18 13:21 | Outpatient (CLI) | payer MEDICARE, MEDICAID, SELFPAY ==
[2022-05-18 22:54] LABS: Alanine Aminotransferase 133 U/L (6-35); Albumin Level 3.7 g/dL (3.5-5.1); Alkaline Phosphatase 211 U/L (38-126); Anion Gap 7 mmol/L (8-16); Aspartate Amino Transferase 74 U/L (14-36); Bilirubin,Total 0.5 mg/dL (0.2-1.3); Blood Urea Nitrogen 17 mg/dL (7-17); Calcium 8.8 mg/dL (8.4-10.2); Carbon Dioxide 27 mmol/L (22-30); Chloride 101 mmol/L (98-107); Estimated Glomerular Filt Rate 52; Glucose 85 mg/dL (65-110); Potassium 3.6 mmol/L (3.4-5.0); Sodium 135 mmol/L (137-145)
[2022-05-19 12:24] LABS: Toxigenic C. Diff NEGATIVE (NEGATIVE)
[2022-05-21 13:09] LABS: Vitamin D 1,25 (OH)2 Total 59 pg/mL (18-72); Vitamin D2 1,25 (OH)2 <8 pg/mL; Vitamin D3 1,25 (OH)2 59 pg/mL
== END 2022-05-18 13:22 | disposition home or self-care (01) ==
LOC: ANHLAB 13:25
PROVIDERS: Internal Medicine; PCP Emergency Medicine; Visit Provider Emergency Medicine
DX: Z13.6 Encounter for screening for cardiovascular disorders (principal); E55.9 Vitamin D deficiency, unspecified; E03.9 Hypothyroidism, unspecified; R19.7 Diarrhea, unspecified
CPT/HCPCS: 36415; 80053; 82652; 84443; 87045; 87177; 87209; 87427; 87493; 89055

== ENCOUNTER 2022-06-17 12:07 | Outpatient (CLI) | payer MEDICARE, MEDICAID, SELFPAY ==
[2022-06-17 13:38] LABS: Alanine Aminotransferase 36 U/L (6-35); Albumin Level 4.4 g/dL (3.5-5.1); Alkaline Phosphatase 122 U/L (38-126); Aspartate Amino Transferase 35 U/L (14-36); Bilirubin,Total 0.5 mg/dL (0.2-1.3); CRP < 0.5 mg/dL (<1.0)
[2022-06-17 14:09] LABS: Erythrocyte Sedimentation Rate 15 mm/hr (0-20)
[2022-06-19 11:24] LABS: Hepatitis A Antibody Total Nonreactive (Nonreactive)
[2022-06-20 17:32] LABS: GGT 66 U/L (3-70)
[2022-06-26 07:25] LABS: ALT 30 U/L (6-29); Alpha-2-Macroglobulin 183 mg/dL (106-279); Apolipoprotein A1 202 mg/dL (101-198); Fibrosis Stage F0; GGT 66 U/L (3-70); Haptoglobin 110 mg/dL (43-212); Necroinflammat Act Grade A0; Total Bilirubin 0.3 mg/dL (0.2-1.2)
[2022-06-30 08:41] LABS: Gliadin AB, IgG <1.0; TTG IGA AB <1.0
== END 2022-06-17 12:08 | disposition home or self-care (01) ==
PROVIDERS: PCP Emergency Medicine; Visit Provider Nurse Practitioner
DX: R79.89 Other specified abnormal findings of blood chemistry (principal); K52.9 Noninfective gastroenteritis and colitis, unspecified; R93.2 Abnormal findings on diagnostic imaging of liver and biliary tract; K76.0 Fatty (change of) liver, not elsewhere classified
CPT/HCPCS: 36415; 80076; 81596; 82977; 83516; 85652; 86140; 86255; 86708

== ENCOUNTER 2022-07-24 12:48 | Emergency (ER) | payer MEDICARE, MEDICAID, SELFPAY ==
[2022-07-24 12:59] VITALS: BP 118/64; PULSE 69; RESP 16; TEMP 35.9; O2SAT 99
[2022-07-24 13:02] VITALS: BP 118/64; PULSE 69; RESP 16; TEMP 35.9; O2SAT 99
--- NOTE | 2022-07-24 13:11 | ED.GENADULT ---
HPI - General Adult General Chief complaint: Unspecified Stated complaint: Nose Pain Time Seen by Provider: 07/24/22 13:11 Source: patient, RN notes reviewed and old records reviewed Mode of arrival: ambulatory Limitations: no limitations History of Present Illness HPI narrative: 57-year-old female presents to the [facility] with a sore on her nose. Redness and crusting noted to the septum. Denies fevers. States its been going on for couple weeks. No treatment prior to arrival. Related Data Home Medications Medication Instructions Recorded Confirmed estradiol 2 mg tablet 2 mg PO DAILY 09/12/19 05/27/22 aripiprazole 5 mg tablet 5 mg PO DAILY 11/24/21 05/27/22 estradiol 2 mg tablet mg 07/24/22 Allergies Allergy/AdvReac Type Severity Reaction Status Date / Time nitrofurantoin Allergy Mild Hives Verified 07/24/22 12:51 Review of Systems Review of Systems: All systems reviewed & are unremarkable except as noted in HPI and below Constitutional: Constitutional: Reports no additional constitutional complaints, Denies chills and Denies fever(s) Eyes: Eyes: Reports no additional eye complaints ENT: Reports as per HPI Cardiovascular: Cardiovascular: Reports no additional cardiovascular complaints Respiratory: Respiratory: Reports no additional respiratory complaints Gastrointestinal: Gastrointestinal: Reports no additional gastrointestinal complaints Musculoskeletal: Musculoskeletal: Reports no additional musculoskeletal complaints Integumentary/Breasts: Skin/Breast: Reports system reviewed and no additional complaints, except as docu Neurologic: Reports system reviewed and no additional complaints, except as documented Psychiatric: Psychiatric: Reports no additional psychiatric complaints Allergic/Immunologic: Allergic/Immunologic: Reports no additional allergic/immunologic complaints REPLACED BY [facility] Past Medical History Medical History Abnormal weight gain Acute bacterial sinusitis Acute cystitis with hematuria Acute non-recurrent frontal sinusitis Acute right-sided low back pain with sciatica Anemia, unspecified Anxiety and depression B12 deficiency Back pain with sciatica BMI 33.0-33.9,adult BMI 35.0-35.9,adult Body mass index [BMI] 29.0-29.9, adult (11/22/17) Body mass index [BMI] 30.0-30.9, adult (02/28/18) Body mass index [BMI] 31.0-31.9, adult (12/20/17) Cellulitis of right lower leg delivery delivered Chronic bilateral low back pain without sciatica Chronic nonintractable headache Chronic pain Chronic UTI Depression Dislocation of great toe, left, open Dislocation of great toe, left, open Disorder of kidney and ureter, unspecified Dizziness Dorsalgia, unspecified Edema, unspecified Elevated liver enzymes Fatigue Ganglion cyst Hypothyroidism (acquired) Intervertebral disc disorder with radiculopathy of lumbar region Intracranial space-occupying lesion Iron deficiency anemia Localized edema Low sodium levels Moderate single current episode of major depressive disorder Mucocele of lower lip Mucous cyst of finger Need for hepatitis C screening test Other chronic pain Ovarian cyst Pain and swelling of left lower leg Pain and swelling of right lower leg Steatosis of liver Sweat, sweating, excessive Temporary low platelet count Unspecified Escherichia coli [E. coli] as the cause of diseases classified elsewhere Unspecified open wound of left great toe without damage to nail, initial encounter Upper respiratory tract infection Vitamin D deficiency Surgical History Surgical History H/O section History of cholecystectomy History of colonoscopy History of esophagogastroduodenoscopy History of exploratory laparotomy History of hysterectomy Family History Family History Mother Cerebrovascular accident Family history of
== END 2022-07-24 13:23 | disposition home or self-care (01) ==
PROVIDERS: Emergency Provider Nurse Practitioner; PCP Emergency Medicine
DX: L01.00 Impetigo, unspecified (principal); E03.9 Hypothyroidism, unspecified
CPT/HCPCS: 99213; G0463

== ENCOUNTER 2022-12-30 13:28 | Outpatient (CLI) | payer MEDICARE, MEDICAID, SELFPAY ==
[2022-12-30 14:34] LABS: Hematocrit 39.3 % (37.0-47.0); Hemoglobin 13.4 g/dL (12.0-15.0); Mean Corpuscular HGB Conc 34.1 g/dl (32-36); Mean Corpuscular Hemoglobin 31.6 pg (26-34); Mean Corpuscular Volume 92.7 fl (80-100); Mean Platelet Volume 11.4 fl (7.4-10.4); Platelet Count Result 215 k/mm3 (150-375); Red Blood Count 4.24 M/mm3 (4.2-5.4); Red Cell Distribution Width 13.1 % (11.5-14.5); White Blood Count 8.3 K/mm3 (4.5-10.0)
[2022-12-30 15:00] LABS: Alanine Aminotransferase 20 U/L (6-35); Albumin Level 4.5 g/dL (3.5-5.1); Alkaline Phosphatase 69 U/L (38-126); Amylase 76 U/L (30-110); Anion Gap 5 mmol/L (8-16); Aspartate Amino Transferase 23 U/L (14-36); Bilirubin,Total 0.8 mg/dL (0.2-1.3); Blood Urea Nitrogen 19 mg/dL (7-17); CRP 0.7 mg/dL (<1.0); Carbon Dioxide 28 mmol/L (22-30); Chloride 104 mmol/L (98-107); Estimated Glomerular Filt Rate > 60; Glucose 95 mg/dL (65-110); Lipase 69 U/L (23-300); Potassium 3.8 mmol/L (3.4-5.0); Sodium 137 mmol/L (137-145)
[2022-12-30 15:48] LABS: Erythrocyte Sedimentation Rate 12 mm/hr (0-20)
[2023-01-03 23:40] LABS: Vitamin D 1,25 (OH)2 Total 26 pg/mL (18-72); Vitamin D2 1,25 (OH)2 <8 pg/mL; Vitamin D3 1,25 (OH)2 26 pg/mL
== END 2022-12-30 13:29 | disposition home or self-care (01) ==
PROVIDERS: PCP Emergency Medicine; Visit Provider Nurse Practitioner
DX: K76.0 Fatty (change of) liver, not elsewhere classified (principal); E03.9 Hypothyroidism, unspecified; R10.84 Generalized abdominal pain; E55.9 Vitamin D deficiency, unspecified
CPT/HCPCS: 36415; 80053; 82150; 82248; 82652; 83690; 84443; 85027; 85652; 86140

== ENCOUNTER 2023-01-20 12:35 | Outpatient (CLI) | payer MEDICARE, MEDICAID, SELFPAY ==
--- NOTE | ~2023-01-20 | MR_ITS ---
EXAMINATION: MR lumbar spine wo con DATE: 01/20/2023 13:16 INDICATION: Lumbar radiculopathy. TECHNIQUE: Magnetic resonance imaging (MRI) of the lumbar spine was performed without intravenous con trast. Sequences included sagittal T2-weighted FSE, sagittal T2-weighted FS FSE, sagittal T1-weighted FSE, and axial T2-weighted FSE. COMPARISON: Lumbar spine MRI 05/26/2019 FINDINGS: There is 3 degrees dextrocurvature of lumbar spine. There is 4 mm retrolisthesis of L5 on S 1. Vertebral body heights are normal. There is moderately decreased disc height at T11-T12, L3-L4, an d L4-L5 and severely decreased disc height at L5-S1 with endplate remodeling. The distal spinal cord signal intensity is normal. The conus medullaris is at L1. The following disc levels are specifically discussed: L1-L2: The disc does not extend beyond the endplate margin. There is no facet joint osteoarthritis. T here is no neural foraminal stenosis. There is no central canal stenosis. L2-L3: The disc does not extend beyond the endplate margin. There is mild bilateral facet joint osteo arthritis. There is no neural foraminal stenosis. There is no central canal stenosis. L3-L4: The disc is bulging and has an annular fissure. There is moderate right and severe left facet joint osteoarthritis. There is mild bilateral neural foraminal stenosis. There is mild central canal stenosis. L4-L5: The disc is bulging and has an annular fissure. There is severe right and moderate left facet joint osteoarthritis. There is mild bilateral neural foraminal stenosis. There is mild central canal stenosis. L5-S1: The disc is bulging and has an annular fissure. There is moderate bilateral facet joint osteoa rthritis. There is moderate bilateral neural foraminal stenosis. There is mild central canal stenosis . IMPRESSION: 1. Severe lumbar spondylosis, worsened from 12/24/2018. Reviewed, dictated and finalized at location A.
== END 2023-01-20 12:36 | disposition home or self-care (01) ==
PROVIDERS: PCP Emergency Medicine; Visit Provider Emergency Medicine
DX: M51.36 Other intervertebral disc degeneration, lumbar region (principal); R19.7 Diarrhea, unspecified; M47.26 Other spondylosis with radiculopathy, lumbar region
CPT/HCPCS: 72148

== ENCOUNTER 2023-02-25 11:16 | Outpatient (CLI) | payer MEDICARE, MEDICAID, SELFPAY | END 2023-02-25 11:17 | disposition home or self-care (01) | PROVIDERS: PCP Emergency Medicine; Visit Provider Emergency Medicine | DX: E03.9 Hypothyroidism, unspecified (principal) | CPT/HCPCS: 36415; 84443 ==

== ENCOUNTER 2023-06-15 10:01 | Emergency (ER) | payer MEDICARE, MEDICAID, SELFPAY ==
--- NOTE | ~2023-06-15 | XR_ITS ---
Clinical Indication: Shortness of breath PA and lateral views of the chest: Comparison: 04/29/2021 Findings: The lungs are clear, without evidence of focal consolidation or pleural effusion. Cardiome diastinal silhouette is within normal limits. Bones and soft tissues are unremarkable. Impression: Normal chest. Reviewed, dictated and finalized at location . Impression: Normal chest.
--- NOTE | 2023-06-15 10:02 | ECG_ITS ---
Measurements Intervals [place]y Rate: 97 P: 74 MN: 152 QRS: 35 QRSD: 75 T: 37 QT: 348 QTc: 443 Interpretive Statements SINUS RHYTHM POSSIBLE LEFT ATRIAL ENLARGEMENT [-0.1mV P-WAVE IN V1/V2] LOW QRS VOLTAGE IN PRECORDIAL LEADS [QRS DEFLECTION < 1.0 mV IN CHEST LEADS] BORDERLINE ECG COMPARED TO ECG 09/21/2021 17:27:56 NO SIGNIFICANT CHANGES Electronically Signed On 06-15-2023 12:16:02 CDT by Husam Fuentes M.D.
[2023-06-15 10:18] VITALS: BP 152/73; PULSE 98; RESP 16; TEMP 36.4; O2SAT 99
[2023-06-15 11:51] LABS: Basophils Percent Auto 0.4 % (0.2-1.2); Eosinophils Absolute Auto 0.1 K/mm3 (0-0.3); Eosinophils Percent Auto 1.1 % (0-4.4); Hematocrit 37.4 % (37.0-47.0); Hemoglobin 12.8 g/dL (12.0-15.0); Immature Granulocyte Absolute 0.03 K/mm3 (0.00-0.031); Immature Granulocyte Percent A 0.4 % (0-0.5); Lymphocytes Absolute Auto 2.36 K/mm3 (0.9-3.2); Lymphocytes Percent Auto 29.9 % (18.3-44.2); Mean Corpuscular HGB Conc 34.2 g/dl (32-36); Mean Corpuscular Hemoglobin 31.8 pg (26-34); Mean Platelet Volume 10.9 fl (7.4-10.4); Monocytes Absolute Auto 0.5 K/mm3 (0.1-0.6); Monocytes Percent Auto 5.9 % (2.6-8.5); Neutrophils Absolute Auto 4.9 K/mm3 (1.3-6.7); Neutrophils Percent Auto 62.3 % (45.5-73.1); Platelet Count Result 202 k/mm3 (150-375); Red Blood Count 4.02 M/mm3 (4.2-5.4); Red Cell Distribution Width 13.6 % (11.5-14.5); White Blood Count 7.9 K/mm3 (4.5-10.0)
[2023-06-15 12:00] LABS: Alanine Aminotransferase 24 U/L (6-35); Albumin Level 4.3 g/dL (3.5-5.1); Alkaline Phosphatase 66 U/L (38-126); Anion Gap 7 mmol/L (8-16); Aspartate Amino Transferase 29 U/L (14-36); Bilirubin,Total 0.8 mg/dL (0.2-1.3); Blood Urea Nitrogen 20 mg/dL (7-17); Calcium 8.9 mg/dL (8.4-10.2); Carbon Dioxide 27 mmol/L (22-30); Chloride 103 mmol/L (98-107); Estimated CRCL calculation 71 ml/min; Estimated Glomerular Filt Rate 57; Glucose 92 mg/dL (65-110); Lipase 83 U/L (23-300); Potassium 4.2 mmol/L (3.4-5.0); Sodium 137 mmol/L (137-145)
[2023-06-15 12:01] LABS: Partial Thromboplastin Time 22.4 SECONDS (22.3-36.8)
[2023-06-15 12:11] LABS: Troponin I < 0.012 ng/mL (0.000-0.034)
[2023-06-15 13:45] VITALS: BP 140/86; PULSE 82; RESP 16; TEMP 36.4; O2SAT 98
[2023-06-15 14:11] LABS: Troponin I < 0.012 ng/mL (0.000-0.034)
--- NOTE | 2023-06-15 14:43 | PC.NURSE ---
Pt reports she feels like she is shaking all over. Pt reports she woke up feeling this way yesterday and also has had episodes of feeling short of breath. Pt just placed in room 12, on traffic monitor specialist, Spo2 and BP. A/O x 4, no distress, skin pwd and gait steady.
[2023-06-15 14:45] VITALS: BP 138/85; PULSE 84; RESP 17; O2SAT 98
--- NOTE | 2023-06-15 15:28 | ED.ARRPALP ---
HPI - Arrhythmia/Palpitations General Chief Complaint: Arrhythmia/Palpitations Stated Complaint: heart is pounding Time Seen by Provider: 06/15/23 14:55 Source: patient Limitations: no limitations History of Present Illness HPI narrative: Patient presents to the ED for tremulousness and a racing heart rate that hasn't changes since yesterday and has been constant, feels it currently, admits to a history of this in the past but it goes away promptly. Admits to alcohol consumption the night prior to this starting, denies regular alcohol consumption. Denies history of abnormal heart rhythms. Denies new or changed medications, caffeine consumption changes, supplement use, chest pain, shortness of breath, fatigue, diarrhea, vomiting, abdominal pain, vaginal bleeding, fever, numbness, weakness. complaint: heart racing Onset (ago): day(s) (1) Duration: constant Severity: similar to previous episodes Context: occurred during rest Arrhythmia history: other (none) Associated symptoms: anxiety and other (tremulousness.) Treatments prior to arrival: other (none) Related Data Home Medications Medication Instructions Recorded Confirmed estradiol 2 mg tablet 2 mg PO DAILY 09/12/19 05/27/22 aripiprazole 5 mg tablet 5 mg PO DAILY 11/24/21 05/27/22 estradiol 2 mg tablet mg 07/24/22 Allergies Allergy/AdvReac Type Severity Reaction Status Date / Time nitrofurantoin Allergy Mild Hives Verified 04/12/23 11:43 Review of Systems Review of Systems: A 10 system review of systems was completed on the patient and is negative except for what is stated in the HPI. Nursing and ancillary documentation was reviewed. [facility] Past Medical History Medical History Abnormal weight gain Acute bacterial sinusitis Acute cystitis with hematuria Acute non-recurrent frontal sinusitis Acute right-sided low back pain with sciatica Anemia, unspecified Anxiety and depression Arthritis B12 deficiency Back pain with sciatica BMI 33.0-33.9,adult BMI 35.0-35.9,adult Body mass index [BMI] 29.0-29.9, adult (11/22/17) Body mass index [BMI] 30.0-30.9, adult (02/28/18) Body mass index [BMI] 31.0-31.9, adult (12/20/17) Cellulitis of right lower leg delivery delivered Chronic bilateral low back pain without sciatica Chronic nonintractable headache Chronic pain Chronic UTI Depression Dislocation of great toe, left, open Dislocation of great toe, left, open Disorder of kidney and ureter, unspecified Dizziness Dorsalgia, unspecified Edema, unspecified Elevated liver enzymes Fatigue Ganglion cyst Generalized abdominal discomfort GERD (gastroesophageal reflux disease) Hypothyroidism (acquired) Intervertebral disc disorder with radiculopathy of lumbar region Intracranial space-occupying lesion Iron deficiency anemia Irritable bowel syndrome with diarrhea Localized edema Low sodium levels Moderate single current episode of major depressive disorder Mucocele of lower lip Mucous cyst of finger Need for hepatitis C screening test Other chronic pain Ovarian cyst Pain and swelling of left lower leg Pain and swelling of right lower leg Steatosis of liver Sweat, sweating, excessive Temporary low platelet count Thyroid disorder Unspecified Escherichia coli [E. coli] as the cause of diseases classified elsewhere Unspecified open wound of left great toe without damage to nail, initial encounter Upper respiratory tract infection Vitamin D deficiency Surgical History Surgical History H/O section History of cholecystectomy History of colonoscopy History of esophagogastroduodenoscopy History of exploratory laparotomy History of hysterectomy Family History Family History Mother Cerebrovascular accident Family history of diabetes mellitus in first degree relative Diabetes mellitu
[2023-06-15 17:01] LABS: Magnesium 1.7 mg/dL (1.6-2.3)
[2023-06-15 17:07] LABS: SARS-CoV-2 RNA PCR Negative (Negative)
[2023-06-15 17:15] LABS: D Dimer 0.33 ug/mL (<0.48)
[2023-06-15 17:25] VITALS: BP 138/95; PULSE 83; RESP 13; O2SAT 99
[2023-06-15 19:14] VITALS: BP 140/78; PULSE 74; RESP 15; O2SAT 98
[2023-06-15 20:23] VITALS: BP 138/95; PULSE 77; RESP 14; O2SAT 99
== END 2023-06-15 20:23 | disposition home or self-care (01) ==
PROVIDERS: General Practice; Emergency Provider Student in an Organized Health Care Education/Training Program; PCP Emergency Medicine
DX: R00.2 Palpitations (principal); R25.1 Tremor, unspecified; Z20.822 Contact with and (suspected) exposure to COVID-19; E03.9 Hypothyroidism, unspecified; D50.9 Iron deficiency anemia, unspecified; E53.8 Deficiency of other specified B group vitamins; E55.9 Vitamin D deficiency, unspecified; M19.90 Unspecified osteoarthritis, unspecified site; K58.0 Irritable bowel syndrome with diarrhea; K21.9 Gastro-esophageal reflux disease without esophagitis; G89.29 Other chronic pain; F41.9 Anxiety disorder, unspecified; F32.A Depression, unspecified; Z90.49 Acquired absence of other specified parts of digestive tract; Z90.710 Acquired absence of both cervix and uterus; R94.31 Abnormal electrocardiogram [ECG] [EKG]
CPT/HCPCS: 36415; 71046; 80053; 83690; 83735; 84443; 84484; 85025; 85380; 85610; 85730; 87635; 93005; 99284

== ENCOUNTER 2023-08-13 08:53 | Outpatient (CLI) | payer MEDICARE, MEDICAID, SELFPAY ==
--- NOTE | 2023-08-13 08:56 | EST_ITS ---
Patient Info Name: Kathy Franco Age: 58 years : 1965 Gender: Female Ht: 69 in Wt: 230 lbs BSA: 2.29 m2 HR: 70 bpm BP: 147 / 82 mmHg Heart Rhythm: Sinus Rhythm Exam Date: 08/13/2023 9:11 AM Exam Location: [facility] Stress Patient Status: Outpatient Admit Date: 08/13/2023 Staff Ordering Physician: Husam Farris MD Attending Provider: Husam Farris MD Exercise Technologist: Chelo Laird CT Exercise Physician: Shekhar Donovan DO Exam Type: CA stress test treadmill Study Info Indications R00.2 - Palpitations A treadmill exercise stress test was performed. Summary 1. 1. Negative Poli exercise stress test for ischemic ST changes by ECG criteria. 2. 2. Reduced functional capacity, achieving 6.5 METs of workload. 3. 3. Baseline hypertension. 4. 4. Appropriate HR response to exercise. 5. 5. Appropriate HR recovery at 1 minute post exercise. 6. 6. No imaging with stress testing. 7. 7. Patient informed of the above results. Protocol: Poli Stress ECG Details Stage: REST Duration (min): 1 min : 16 sec Speed (mph): 0.0 Grade (%): 0 HR (bpm): 69 SBP (mmHg): 147 DBP (mmHg): 82 METS: --- Stage: REST Duration (min): 8 min : 36 sec Speed (mph): 0.0 Grade (%): 0 HR (bpm): 71 SBP (mmHg): 147 DBP (mmHg): 82 METS: --- Stage: STAGE 1 Duration (min): 1 min : 0 sec Speed (mph): 1.7 Grade (%): 10 HR (bpm): 108 SBP (mmHg): 147 DBP (mmHg): 82 METS: --- Stage: STAGE 1 Duration (min): 2 min : 0 sec Speed (mph): 1.7 Grade (%): 10 HR (bpm): 122 SBP (mmHg): 147 DBP (mmHg): 82 METS: --- Stage: STAGE 1 Duration (min): 3 min : 0 sec Speed (mph): 1.7 Grade (%): 10 HR (bpm): 132 SBP (mmHg): 147 DBP (mmHg): 82 METS: --- Stage: STAGE 2 Duration (min): 1 min : 0 sec Speed (mph): 2.5 Grade (%): 12 HR (bpm): 140 SBP (mmHg): 185 DBP (mmHg): 74 METS: --- Stage: STAGE 2 Duration (min): 1 min : 1 sec Speed (mph): 2.5 Grade (%): 12 HR (bpm): 140 SBP (mmHg): 185 DBP (mmHg): 74 METS: --- Stage: RECOVERY Duration (min): 0 min : 58 sec Speed (mph): 0.0 Grade (%): 0 HR (bpm): 131 SBP (mmHg): 125 DBP (mmHg): 63 METS: --- Stage: RECOVERY Duration (min): 1 min : 58 sec Speed (mph): 0.0 Grade (%): 0 HR (bpm): 100 SBP (mmHg): 125 DBP (mmHg): 63 METS: --- Stage: RECOVERY Duration (min): 2 min : 58 sec Speed (mph): 0.0 Grade (%): 0 HR (bpm): 89 SBP (mmHg): 172 DBP (mmHg): 88 METS: --- Stage: RECOVERY Duration (min): 3 min : 12 sec Speed (mph): 0.0 Grade (%): 0 HR (bpm): 85 SBP (mmHg): 172 DBP (mmHg): 88 METS: --- Rest HR: 71 bpm Peak HR: 142 bpm Rest Sys BP: 147 mmHg Peak Sys BP: 185 mmHg Max Pred HR: 163 bpm % Max Pred HR: 87 % Target HR: 139 bpm Max RPP: 26,270 bpm*mmHg Crump Score: -2 Termination Reason: Reached target heart rate or workload Cardiac Symptoms: Shortness of breath Max ST Seg Deviation: -1.30 mm Tota
== END 2023-08-13 08:54 | disposition home or self-care (01) ==
PROVIDERS: PCP Emergency Medicine; Visit Provider Emergency Medicine
DX: R00.2 Palpitations (principal); R06.09 Other forms of dyspnea; R07.89 Other chest pain
CPT/HCPCS: 93017

== ENCOUNTER 2023-09-07 15:44 | Outpatient (CLI) | payer MEDICARE, MEDICAID, SELFPAY ==
--- NOTE | 2023-09-07 15:58 | ECHO_ITS ---
Patient Info Name: Kathy Franco Age: 58 years : 1965 Gender: Female Ht: 69 in Wt: 220 lbs BSA: 2.24 m2 HR: 70 bpm BP: 125 / 83 mmHg Heart Rhythm: Sinus Rhythm Technical Quality: Good Exam Date: 09/07/2023 4:02 PM Exam Location: Echo Lab Patient Status: Outpatient Admit Date: 09/07/2023 Staff Ordering Physician: Shekhar Donovan DO Et[employer]: Dianna Layne RDCS Attending Provider: Shekhar Donovan DO Referring Physician: Zion GOMES; Exam Type: CA echo doppler color flow Study Info Indications - other forms of dyspnea Complete two-dimensional, color flow and Doppler transthoracic echocardiogram is performed. Summary 1. Complete two-dimensional, color flow and Doppler transthoracic echocardiogram is performed. 2. Left ventricular chamber dimension is normal. 3. Left ventricular systolic function is normal, estimated at 60-65%. 4. The left ventricular diastolic function is normal. 5. E/e' 7 is not elevated. 6. There is trace mitral valve regurgitation. 7. There is trace tricuspid valve regurgitation. 8. No pulmonary hypertension, estimated pulmonary arterial systolic pressure is 32 mmHg. Left Ventricle E/e' 7 is not elevated. Left ventricular chamber dimension is normal. Left ventricular systolic function is normal, estimated at 60-65%. The left ventricular diastolic function is normal. Right Ventricle Right ventricular systolic function is normal and with normal TAPSE 2.3 cm. Right ventricular chamber dimension is normal. Left Atria Left atrial chamber dimension is normal. Right Atria Right atrial chamber dimension is normal. Aortic Valve The aortic valve is trileaflet. There is no aortic valve stenosis. There is no aortic valve regurgitation. Pulmonic Valve There is no pulmonic regurgitation. Mitral Valve There is no mitral valve stenosis. There is trace mitral valve regurgitation. Tricuspid Valve There is trace tricuspid valve regurgitation. No pulmonary hypertension, estimated pulmonary arterial systolic pressure is 32 mmHg. Pericardium/Pleural There is no pericardial effusion. Inferior Vena Cava Normal inferior vena cava with >50% collapse upon inspiration consistent with normal right atrial pressure, 5 mmHg. Aorta The aortic root size at the sinus of Valsalva is normal. Left Ventricular Outflow Tract Name Value Normal LVOT 2D LVOT Diameter 1.8 cm LVOT Doppler LVOT Peak Gradient 4 mmHg LVOT Mean Gradient 2 mmHg LVOT VTI 26 cm LVOT VTI/AV VTI Ratio 1.0 LVOT Stroke Volume 68 ml LVOT CO 7.6 l/min LVOT CI 3.4 l/min/m2 Pulmonic Valve Name Value Normal RVOT Doppler RVOT Peak Gradient 2 mmHg PV Doppler
== END 2023-09-07 15:45 | disposition home or self-care (01) ==
PROVIDERS: PCP Emergency Medicine; Visit Provider Internal Medicine Cardiovascular Disease
DX: R06.09 Other forms of dyspnea (principal)
CPT/HCPCS: 93306

== ENCOUNTER 2024-01-10 22:53 | Emergency (ER) | payer MEDICARE, MEDICAID, SELFPAY ==
--- NOTE | ~2024-01-10 | XR_ITS ---
EXAMINATION: XR sacrum coccyx min 2V DATE: 01/11/2024 01:26 INDICATION: Sacrococcygeal pain. Fall. TECHNIQUE: 3 views of the sacrum and coccyx were obtained. COMPARISON: CT lumbar spine 01/11/2024 FINDINGS: Bone alignment is normal. No fracture. There is severe lumbar spondylosis. There is mild os teoarthritis of the sacroiliac joints and hip joints. IMPRESSION: 1. No fracture. Reviewed, dictated and finalized at location E. IMPRESSION: 1. No fracture.
--- NOTE | ~2024-01-10 | CT_ITS ---
EXAMINATION: CT lumbar spine wo con DATE: 01/11/2024 01:21 INDICATION: Fall. Low back pain. TECHNIQUE: Computed tomography (CT) of the lumbar spine was performed without intravenous contrast. A utomated exposure control and iterative reconstruction technique were employed. The dose-length produ ct was 1280.68 mGy-cm. COMPARISON: Lumbar spine MRI 01/20/2023 FINDINGS: There is 7 degrees dextrocurvature of lumbar spine. There is 3 mm retrolisthesis of L5 on S 1. Vertebral body heights are normal. There is severely decreased disc height from L3-L4 through L5-S 1. The following disc levels are specifically discussed: L1-L2: The disc does not extend beyond the endplate margin. There is mild bilateral facet joint osteo arthritis. There is no neural foraminal stenosis. There is no central canal stenosis. L2-L3: The disc does not extend beyond the endplate margin. There is moderate right and mild left fac et joint osteoarthritis. There is no neural foraminal stenosis. There is no central canal stenosis. L3-L4: The disc is bulging. There is moderate bilateral facet joint osteoarthritis. There is mild ashley ateral neural foraminal stenosis. There is mild central canal stenosis. L4-L5: The disc is bulging. There is severe right and moderate left facet joint osteoarthritis. There is mild bilateral neural foraminal stenosis. There is mild central canal stenosis. L5-S1: The disc is bulging. There is severe bilateral facet joint osteoarthritis. There is moderate b ilateral neural foraminal stenosis. There is mild central canal stenosis. IMPRESSION: 1. Severe lumbar spondylosis. Reviewed, dictated and finalized at location E.
[2024-01-10 22:57] VITALS: BP 135/74; PULSE 69; RESP 18; TEMP 36.7; O2SAT 100
--- NOTE | 2024-01-11 02:20 | ED.BACK ---
HPI - Back Pain/Injury General Chief Complaint: Back Pain/Injury Stated Complaint: back pain Time Seen by Provider: 01/11/24 00:37 History of Present Illness HPI Narrative: Patient is a 58-year-old female who presents the emergency department this evening complaining of left lower back pain and sacrum/coccyx pain. Patient states that a few days ago she was out drinking and was walking in an alley when she must have slipped and fell because the next day she has bruising all over her left buttocks region. Patient states that she has been icing the area which has been taking [id number] medications, however, given that it has been 3 days but she and her pain persist she wanted to be evaluated. Patient denies hitting her head or any loss consciousness. She is currently denying any additions that time. Patient admits that she has been ambulating since fall. There are no other modifying, alleviating, or precipitating factors at this time. Related Data Home Medications Medication Instructions Recorded Confirmed aripiprazole 5 mg tablet 5 mg PO DAILY 11/24/21 11/30/23 estradiol 2 mg tablet mg 07/24/22 11/30/23 Allergies Allergy/AdvReac Type Severity Reaction Status Date / Time nitrofurantoin Allergy Mild Hives Verified 01/10/24 23:02 Review of Systems Review of Systems: All systems are reviewed and are negative unless stated otherwise in the HPI. [facility] Past Medical History Medical History Abnormal weight gain Acute bacterial sinusitis Acute cystitis with hematuria Acute non-recurrent frontal sinusitis Acute right-sided low back pain with sciatica Anemia, unspecified Anxiety and depression Arthritis B12 deficiency Back pain with sciatica BMI 33.0-33.9,adult BMI 35.0-35.9,adult Body mass index [BMI] 29.0-29.9, adult (11/22/17) Body mass index [BMI] 30.0-30.9, adult (02/28/18) Body mass index [BMI] 31.0-31.9, adult (12/20/17) Cellulitis of right lower leg delivery delivered Chronic bilateral low back pain without sciatica Chronic nonintractable headache Chronic pain Chronic UTI Depression Dislocation of great toe, left, open Dislocation of great toe, left, open Disorder of kidney and ureter, unspecified Dizziness Dorsalgia, unspecified Dyspnea on exertion Edema, unspecified Elevated liver enzymes Fatigue Ganglion cyst Generalized abdominal discomfort GERD (gastroesophageal reflux disease) Hypothyroidism (acquired) Intervertebral disc disorder with radiculopathy of lumbar region Intracranial space-occupying lesion Iron deficiency anemia Irritable bowel syndrome with diarrhea Localized edema Low sodium levels Moderate single current episode of major depressive disorder Mucocele of lower lip Mucous cyst of finger Need for hepatitis C screening test Other chronic pain Ovarian cyst Pain and swelling of left lower leg Pain and swelling of right lower leg Palpitation Steatosis of liver Sweat, sweating, excessive Temporary low platelet count Thyroid disorder Unspecified Escherichia coli [E. coli] as the cause of diseases classified elsewhere Unspecified open wound of left great toe without damage to nail, initial encounter Upper respiratory tract infection Vitamin D deficiency Surgical History Surgical History H/O section History of cholecystectomy History of colonoscopy History of esophagogastroduodenoscopy History of exploratory laparotomy History of hysterectomy Family History Family History Mother Cerebrovascular accident Family history of diabetes mellitus in first degree relative Diabetes mellitus Family history of kidney disease Family history of cardiovascular disease Uterine cancer Hypertension Depression Anxiety Father Cerebrovascular accident Family history of diabetes mellitus in first degree
[2024-01-11] MEDS: HYDROcodone/acetaminophen (*CRX) 5-325 MG TABLET 1 TAB PO (03:31)
[2024-01-11 03:34] VITALS: BP 121/71; PULSE 70; RESP 19; O2SAT 100
== END 2024-01-11 03:35 | disposition home or self-care (01) ==
PROVIDERS: Emergency Provider Emergency Medicine; PCP Emergency Medicine
DX: S30.0XXA Contusion of lower back and pelvis, initial encounter (principal); S70.12XA Contusion of left thigh, initial encounter; E03.9 Hypothyroidism, unspecified; E55.9 Vitamin D deficiency, unspecified; E53.8 Deficiency of other specified B group vitamins; D50.9 Iron deficiency anemia, unspecified; K21.9 Gastro-esophageal reflux disease without esophagitis; K58.0 Irritable bowel syndrome with diarrhea; M19.90 Unspecified osteoarthritis, unspecified site; F41.9 Anxiety disorder, unspecified; F32.A Depression, unspecified; Z90.49 Acquired absence of other specified parts of digestive tract; Z90.710 Acquired absence of both cervix and uterus; M47.26 Other spondylosis with radiculopathy, lumbar region; W01.0XXA Fall on same level from slipping, tripping and stumbling without subsequent striking against object, initial encounter
CPT/HCPCS: 72131; 72220; 99284; A9270

== ENCOUNTER 2024-02-18 10:53 | Emergency (ER) | payer MEDICARE, MEDICAID, SELFPAY ==
[2024-02-18 11:10] VITALS: BP 139/84; PULSE 71; RESP 16; TEMP 36.3; O2SAT 99
--- NOTE | 2024-02-18 11:31 | ED.FEMALEGU ---
HPI - Female Genitourinary General Chief complaint: Urogenital-Female Stated complaint: back pain Time Seen by Provider: 02/18/24 11:24 Source: patient and RN notes reviewed Mode of arrival: ambulatory Limitations: no limitations History of Present Illness HPI Narrative: Patient presents today complaining of a 4 day history of low back pain, bilateral flank pain, subjective fever, nausea, vomiting, diarrhea. She does have some residual nausea, but states the vomiting and diarrhea has resolved. Denies dysuria, hematuria, frequency, but states when she has increased back pain over her chronic discomfort, she typically has a UTI. She currently rates her pain 8/10 and has tried no [id number]-[id number] treatment prior to arrival. Related Data Home Medications Medication Instructions Recorded Confirmed aripiprazole 5 mg tablet 5 mg PO DAILY 11/24/21 02/18/24 estradiol 2 mg tablet mg 07/24/22 11/30/23 Allergies Allergy/AdvReac Type Severity Reaction Status Date / Time nitrofurantoin Allergy Mild Hives Verified 02/18/24 11:16 Review of Systems Review of Systems: CONSTITUTIONAL: Denies body aches, chills, or sweats.+ subjective fever EYES: Denies visual changes, redness, or discharge. ENT: Denies rhinorrhea, congestion, sore throat, or otalgia. CARDIOVASCULAR: Denies chest pain, palpitations, or edema. RESPIRATORY: Denies cough or dyspnea. GASTROINTESTINAL: + flank pain, nausea, vomiting, diarrhea GENITOURINARY: Denies dysuria or hematuria. SKIN: Denies rash, itching, or wounds. MUSCULOSKELETAL: Denies joint pain, or myalgia.+ low back pain NEUROLOGIC: Denies headache, numbness, tingling, or weakness. PSYCH: Denies depression or anxiety. [facility] Past Medical History Medical History Abnormal weight gain Acute bacterial sinusitis Acute cystitis with hematuria Acute non-recurrent frontal sinusitis Acute right-sided low back pain with sciatica Anemia, unspecified Anxiety and depression Arthritis B12 deficiency Back pain with sciatica BMI 33.0-33.9,adult BMI 35.0-35.9,adult Body mass index [BMI] 29.0-29.9, adult (11/22/17) Body mass index [BMI] 30.0-30.9, adult (02/28/18) Body mass index [BMI] 31.0-31.9, adult (12/20/17) Cellulitis of right lower leg delivery delivered Chronic bilateral low back pain without sciatica Chronic nonintractable headache Chronic pain Chronic UTI Depression Dislocation of great toe, left, open Dislocation of great toe, left, open Disorder of kidney and ureter, unspecified Dizziness Dorsalgia, unspecified Dyspnea on exertion Edema, unspecified Elevated liver enzymes Fatigue Ganglion cyst Generalized abdominal discomfort GERD (gastroesophageal reflux disease) Hypothyroidism (acquired) Intervertebral disc disorder with radiculopathy of lumbar region Intracranial space-occupying lesion Iron deficiency anemia Irritable bowel syndrome with diarrhea Localized edema Low sodium levels Moderate single current episode of major depressive disorder Mucocele of lower lip Mucous cyst of finger Need for hepatitis C screening test Other chronic pain Ovarian cyst Pain and swelling of left lower leg Pain and swelling of right lower leg Palpitation Steatosis of liver Sweat, sweating, excessive Temporary low platelet count Thyroid disorder Unspecified Escherichia coli [E. coli] as the cause of diseases classified elsewhere Unspecified open wound of left great toe without damage to nail, initial encounter Upper respiratory tract infection Vitamin D deficiency Surgical History Surgical History H/O section History of cholecystectomy History of colonoscopy History of esophagogastroduodenoscopy History of exploratory laparotomy History of hysterectomy Family History Family History Mother Cerebrovascular
== END 2024-02-18 11:46 | disposition home or self-care (01) ==
PROVIDERS: Emergency Provider Nurse Practitioner; PCP Emergency Medicine
DX: N39.0 Urinary tract infection, site not specified (principal); B96.20 Unspecified Escherichia coli [E. coli] as the cause of diseases classified elsewhere; F12.90 Cannabis use, unspecified, uncomplicated; K21.9 Gastro-esophageal reflux disease without esophagitis; E03.9 Hypothyroidism, unspecified
CPT/HCPCS: 81003; 87077; 87086; 87088; 87186; 99213; G0463

== ENCOUNTER 2024-02-29 09:19 | Outpatient (CLI) | payer MEDICARE, MEDICAID, SELFPAY ==
[2024-02-29 10:16] LABS: NT Pro B Type Natriuretic Pept 619 pg/mL (19.9-100)
== END 2024-02-29 09:20 | disposition home or self-care (01) ==
PROVIDERS: PCP Emergency Medicine; Visit Provider Emergency Medicine
DX: R06.00 Dyspnea, unspecified (principal)
CPT/HCPCS: 36415; 83880

== ENCOUNTER 2024-04-14 09:45 | Outpatient (CLI) | payer MEDICARE, MEDICAID, SELFPAY ==
[2024-04-14 10:09] LABS: Hematocrit 40.5 % (37.0-47.0); Hemoglobin 13.7 g/dL (12.0-15.0); Mean Corpuscular HGB Conc 33.8 g/dl (32-36); Mean Corpuscular Hemoglobin 31.6 pg (26-34); Mean Corpuscular Volume 93.3 fl (80-100); Mean Platelet Volume 10.4 fl (7.4-10.4); Platelet Count Result 231 k/mm3 (150-375); Red Blood Count 4.34 M/mm3 (4.2-5.4); Red Cell Distribution Width 13.1 % (11.5-14.5); White Blood Count 9.4 K/mm3 (4.5-10.0)
[2024-04-14 10:23] LABS: Prothrombin Time 13.3 Seconds (11.1-14.7)
[2024-04-14 10:26] LABS: Alanine Aminotransferase 27 U/L (6-35); Albumin Level 4.7 g/dL (3.5-5.1); Alkaline Phosphatase 70 U/L (38-126); Anion Gap 8 mmol/L (4-12); Aspartate Amino Transferase 26 U/L (14-36); Blood Urea Nitrogen 25 mg/dL (7-17); Calcium 9.2 mg/dL (8.4-10.2); Carbon Dioxide 28 mmol/L (22-30); Chloride 100 mmol/L (98-107); Estimated Glomerular Filt Rate 51; Glucose 100 mg/dL (65-110); Magnesium 1.8 mg/dL (1.6-2.3); Potassium 4.2 mmol/L (3.4-5.0); Sodium 136 mmol/L (137-145)
[2024-04-28 15:08] LABS: ALT 20 U/L (6-29); Alpha-2-Macroglobulin 135 mg/dL (106-279); Apolipoprotein A1 311 mg/dL (101-198); Fibrosis Score 0.02; Fibrosis Stage F0; GGT 47 U/L (3-70); Haptoglobin 176 mg/dL (43-212); Necroinflammat Act Grade A0; Total Bilirubin 0.7 mg/dL (0.2-1.2)
== END 2024-04-14 09:46 | disposition home or self-care (01) ==
PROVIDERS: PCP Emergency Medicine; Visit Provider Nurse Practitioner
DX: E03.9 Hypothyroidism, unspecified (principal); E66.9 Obesity, unspecified; K21.9 Gastro-esophageal reflux disease without esophagitis; K76.0 Fatty (change of) liver, not elsewhere classified; M25.50 Pain in unspecified joint
CPT/HCPCS: 36415; 80053; 81596; 82607; 83735; 85027; 85610; 86038; 86039

== ENCOUNTER 2024-06-06 11:32 | Outpatient (CLI) | payer MEDICARE, MEDICAID, SELFPAY ==
[2024-06-06 12:13] LABS: Alanine Aminotransferase 20 U/L (6-35); Albumin Level 4.3 g/dL (3.5-5.1); Alkaline Phosphatase 79 U/L (38-126); Anion Gap 11 mmol/L (4-12); Aspartate Amino Transferase 29 U/L (14-36); Bilirubin,Total 0.7 mg/dL (0.2-1.3); Blood Urea Nitrogen 16 mg/dL (7-17); Carbon Dioxide 25 mmol/L (22-30); Chloride 101 mmol/L (98-107); Estimated Glomerular Filt Rate 51; Glucose 106 mg/dL (65-110); Potassium 3.9 mmol/L (3.4-5.0); Sodium 137 mmol/L (137-145)
[2024-06-06 13:14] LABS: Hemoglobin A1C 5.2 % (<5.7)
[2024-06-06 13:32] LABS: Vitamin D 25 Hydroxy 26.5 ng/mL
== END 2024-06-06 11:33 | disposition home or self-care (01) ==
LOC: ANHLAB 11:39
PROVIDERS: PCP Emergency Medicine; Visit Provider Emergency Medicine
DX: E11.9 Type 2 diabetes mellitus without complications (principal); E55.9 Vitamin D deficiency, unspecified; E78.5 Hyperlipidemia, unspecified
CPT/HCPCS: 36415; 80053; 82306; 83036

== ENCOUNTER 2024-12-06 08:20 | Outpatient (CLI) | payer MEDICARE, MEDICAID, SELFPAY ==
--- NOTE | ~2024-12-06 | MM_ITS ---
EXAMINATION: MM screening carmela BI w benny HISTORY: Screening TECHNIQUE: Craniocaudal and mediolateral oblique 3-D tomosynthesis images were obtained and synthetic 2-D images were generated. CAD analysis was submitted and interpreted. COMPARISON: Comparison to multiple prior studies sequentially, with oldest reviewed study dated 04/28. BREAST PARENCHYMAL COMPOSITION: Not Dense: The breasts are almost entirely fatty. FINDINGS: There is no evidence of suspicious mass, calcification, or architectural distortion to sugg est malignancy in either breast. There has been no suspicious interval change. IMPRESSION: 1. No mammographic evidence of malignancy. 2. Recommend routine screening mammography in one year. BI-RADS Category 1: Negative Reviewed, dictated and finalized at location B. NER INTEGRATION PLANNER
--- OUTSIDE RECORDS SUMMARY | 2024-12-06 08:30 | XMS_ITS | Referral Summary ---
Author Organization [facility] Address [address] [place] [address] Care Team Providers Care Deliverer Merchandise Name Role Phone Husam Farris MD Primary Care Provider [phone] Source Comments [facility],non-owned Affiliates and Associated Physician Practices is amultiple site organization consisting of ambulatory clinics and hospital sitesin [place], [place], [place] and [place]. This disclosure is being madepursuant to the Care Everywhere program and may not contain all information available regarding this patient. Last updated 18.[facility] Allergies Active Allergy Reactions Criticality Noted Date Comments Nitrofurantoin Skin Reactions,Urticaria High 017 Medications * Be aware that medications may not be up to date on this document. Alwaysverify current medications with the patient. Medication Sig Dispensed Refills Start Date End Date Status meloxicam (MOBIC) 15 MG tablet Take 15 mg by mouth DAILY. 07/28/2017 Active spironolactone (ALDACTONE) 25 MG tablet Take 25 mg by mouth DAILY. 07/28/2017 Active traZODone (DESYREL) 50 MG tablet Take 50 mg by mouth 2 times daily 07/28/2017 Active buPROPion (WELLBUTRIN) 75 MG tablet Take 75 mg by mouth BID. 07/28/2017 Active ALPRAZolam (XANAX) 0.5 MG tablet Take 0.5 mg by mouth. 07/28/2017 Active estradiol (ESTRACE) 2 MG tablet Take 2 mg by mouth DAILY. 07/28/2017 Active cetirizine (ZYRTEC ALLERGY) 10 MG gel capsule Take 10 mg by mouth once daily as needed Active gabapentin (NEURONTIN) 300 MG capsule Take 300 mg by mouth 3 times daily 06/19/2021 Active phentermine (ADIPEX-P) 37.5 MG tablet Take 37.5 mg by mouth every morning 01/20/2021 Active tiZANidine (ZANAFLEX) 4 MG tablet Take 4 mg by mouth 3 times daily 06/19/2021 Active topiramate (TOPAMAX) 25 MG tablet Take 25 mg by mouth once daily 01/20/2021 Active levothyroxine (SYNTHROID) 75 MCG tablet Take 75 mcg by mouth every morning 06/19/2021 Active venlafaxine XR 24hr (EFFEXOR XR) 150 MG capsule Take 150 mg by mouth 2 times daily 06/19/2021 Active clindamycin (CLEOCIN) 1 % lotion Apply to affected area on buttock daily. 30 day supply. 60 mL 2 07/07/2021 Active Active Problems Problem Noted Date Diagnosed Date Inflamed seborrheic keratosis 07/07/2021 Other seborrheic keratosis 07/07/2021 Multiple benign melanocytic nevi of upper extremity, lower extremity, and trunk 07/07/2021 Lentigines 07/07/2021 Neoplasm of uncertain behavior of skin Bacterial folliculitis 07/07/2021 Bilateral lower extremity edema 05/01/2021 BMI 35.0-35.9,adult 05/01/2021 BEYER (dyspnea on exertion) 05/01/2021 Other chest pain 05/01/2021 Social History Tobacco Use Types Packs/Day Years Used Date Smoking Tobacco: Never Smokeless Tobacco: Never Alcohol Use Standard Drinks/Week Comments Yes 0 (1 standard drink = 0.6 oz pur e alcohol) Sex and Gender Information Value Date Recorded Sex Assigned at Not on file Gender Identity Not on file Sexual Orientation Not on file Plan of Treatment Not on file Care Teams Deliverer Merchandise Relationship Specialty Start Date End Date Husam Farris MD [address] [facility] [address] [place] [address] PCP - General 05/26/17
--- OUTSIDE RECORDS SUMMARY | 2024-12-06 08:30 | XMS_ITS | Continuity of Care Document ---
Author Organization [facility] Address [address] [place] [address] Phone Care Team Providers Care Refrigeration Plant Operator Name Role Phone Duran OD, Matt Unavailable Unavailable Procedures Procedure Date No Charge Contact Lens Check No Charge Contact Lens Check Eye Exam & Treatment Refraction Advance Directives Directive Yes / No Effective Date File Name No Information Encounters Encounter Description Practice Location Reason(s) For Visit Diagnoses Date Provider Providers Copied on Encounter [facility], [address] [place] [address] [address], [place], [place], [id number], tel:[phone] [facility] No Information 5-200 9 Duran OD Matt. [address] [facility] , [address], [place], [place], [facility], [place]. tel:[phone] [facility], [address] [place] [address] [address], [place], [place], [id number], tel:[phone] [facility] No Information 2-200 9 Duran OD Matt. [address] , [address], [place], [address], [place]. tel:[phone] [facility], [address] [place] [address] [address], [place], [place], [id number], [place] tel:[phone] [facility] No Information 5-200 9 Duran OD Matt. [address] , [address], [place], [address], [place]. tel:[phone] Family History Family Member Type Diagnosis Age At Onset No Information Payers Payer name Insurance type Covered constitution party ID Authoriza tion(s) No Information Social History [...]
--- OUTSIDE RECORDS SUMMARY | 2024-12-06 08:30 | XMS_ITS | Clinical Summary ---
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 Gender Identity Not on file Sexual Orientation Not on file Plan of Treatment Health Maintenance Due Date Last Done Comments Cervical Cancer Screening Pa p Smear (Age 30 to 64) Every 3 Years 1966 Colorectal Cancer Screening Colonoscopy (10 Years) 1966 Annual Physical 1969 Hepatitis C 1984 Hepatitis B Vaccines (1 of 3 - 19+ 3-dose series) 1985 Cervical Cancer Screening Pa p with HPV Testing (Age 30 to 64) Every 5 Years 1996 Cervical Cancer Screening with HPV 1996 Mammogram Screening 2006 Zoster Vaccines (1 of 2) 2016 COVID-19 Vaccine (2023-2 5 season) 2024 Influenza Adult (#1) 2024 DTaP, Tdap and Td Vaccines ( 2 - Td or Tdap) 02/09/2027 02/09/2017 Meningococcal B Vaccine Aged Out No l onger eligible based on patient's age to complete this topic Meningococcal Vaccine Aged Out No breonna joanne eligible based on patient's age to complete this topic Pneumococcal Vaccine: Pediat rics (0 to 5 Years) and At-Risk Patients (6 to 64 Years) Aged Out No longer eligi ble based on patient's age to complete this topic RSV Immunizations Under 20 Months Aged Out No longer eligible based on patient's age to complete this topic Insurance AETNA Care Teams Field Support Specialist Relationship Specialty Start Date End Date Husam Farris MD [address] [place] [address] PCP - General INTERNAL MEDICINE 12/03/21
--- OUTSIDE RECORDS SUMMARY | 2024-12-06 08:30 | XMS_ITS | Encounter Summary ---
Author Organization [facility] Address 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
--- OUTSIDE RECORDS SUMMARY | 2024-12-06 08:30 | XMS_ITS | Patient Health Summary ---
Author Organization [facility] Address [address] [facility] [place] [address] Care Team Providers Care Senior Tableau Developer Name Role Phone Husam Farris MD Primary Care Provider [phone] Note from [facility],non-owned Affiliates and Associated Physician Practices is amultiple site organization consisting of ambulatory clinics and hospital sitesin [place], [place], [place] and [place]. This disclosure is being madepursuant to the Care Everywhere program and may not contain all information available regarding this patient. Last updated 18.[facility] Allergies * Nitrofurantoin(Skin Reactions,Urticaria) -High Criticality Medications * Be aware that medications may not be up to date on this document. Alwaysverify current medications with the patient. * meloxicam (MOBIC) 15 MG tablet(Started 07/28/2017) Take 15 mg by mouth DAILY. * spironolactone (ALDACTONE) 25 MG tablet(Started 07/28/2017) Take 25 mg by mouth DAILY. * traZODone (DESYREL) 50 MG tablet(Started 07/28/2017) Take 50 mg by mouth 2 times daily * buPROPion (WELLBUTRIN) 75 MG tablet(Started 07/28/2017) Take 75 mg by mouth BID. * ALPRAZolam (XANAX) 0.5 MG tablet(Started 07/28/2017) Take 0.5 mg by mouth. * estradiol (ESTRACE) 2 MG tablet(Started 07/28/2017) Take 2 mg by mouth DAILY. * cetirizine (ZYRTEC ALLERGY) 10 MG gel capsule Take 10 mg by mouth once daily as needed * gabapentin (NEURONTIN) 300 MG capsule(Started 06/19/2021) Take 300 mg by mouth 3 times daily * phentermine (ADIPEX-P) 37.5 MG tablet(Started 01/20/2021) Take 37.5 mg by mouth every morning * tiZANidine (ZANAFLEX) 4 MG tablet(Started 06/19/2021) Take 4 mg by mouth 3 times daily * topiramate (TOPAMAX) 25 MG tablet(Started 01/20/2021) Take 25 mg by mouth once daily * levothyroxine (SYNTHROID) 75 MCG tablet(Started 06/19/2021) Take 75 mcg by mouth every morning * venlafaxine XR 24hr (EFFEXOR XR) 150 MG capsule(Started 06/19/2021) Take 150 mg by mouth 2 times daily * clindamycin (CLEOCIN) 1 % lotion(Started 07/07/2021) Apply to affected area on buttock daily. 30 day supply. 2 refills by 07/07/2022 Active Problems Problem Noted Date Diagnosed Date [...] on file Sexual Orientation Not on file Procedures * TN DESTRUCT BENIGN LESION, 1-14(Performed 07/07/2021) Performed for Inflamed seborrheic keratosis * DERMATOPATHOLOGY(Performed 07/28/2017) Results * TN DESTRUCT BENIGN LESION, 1-14 (07/07/2021 1:16 PM CDT) Chris Arrington MD - 07/07/2021 1:16 PM CDT Suni Thompson MD 07/07/2021 1:37 PM Diagnosis and treatment options discussed. Cryotherapy (Liquid Nitrogen) to 2 ISKs on L arm and R thigh and 2 warts on R thumb and left foot for 4-6 seconds. Number of cycles: 1. Wound care reviewed. Suni Thompson M.D. [facility] Dermatology Resident, PGY-IV Chris Richmond MD PROCEDURE/MINOR SURG ICAL ORDERABLES * PATHOLOGY TISSUE FOR DERMATOLOGY (07/28/2017 12:00 AM CDT) Result CASE: PATIENT: KATHY FRANCO PATHOLOGIC DIAGNOSIS: Mid lower back: COMPOUND MELANOCYTIC NEVUS CLINICAL DATA: Irritated nevus R/O atypia. GROSS DESCRIPTION: Received is one formalin filled container labeled with the patients name and designated mid lower back. The specimen consists of a shave biopsy measuring [id number]. Jar 0. MICROSCOPIC DESCRIPTION: There are nests of melanocytes at the dermal-epiderm al junction and within the dermis. Electronically signed out by Roberta Rey M.D. 07/29/2017 11:51:01AM [facility] DERMATOLOGY LAB Comment: Performed at: Dermatopathology Laboratory [facility] - Department of Dermatology [address] [place] [address] [place] [address] Phone number: [phone] FAX: [phone] Skin (tissue) specimen (specimen) 07/28/2017 07/28/2017 Narrative [facility] - 07/29/2017 11:51 AM CDT How many specimens?->1 Specimen A: Type->Shave Site->mid lower back History->jason papule Impression->irritated nevus r/o atypia Check Margins:->No Prior Biopsy->No Viky Rivera MD LAB - PATHOLOGY/CYTO LOGY ORDERABLES [facility]MAT[facility] [address] [place] [address]. 5th Floor Lab [address] [phone] Care Teams Senior Tableau Developer Relationship Specialty Start Date End Date Husam Farris MD [address] [address] PCP - General 05/26/17
--- OUTSIDE RECORDS SUMMARY | 2024-12-06 08:30 | XMS_ITS | Clinical Summary ---
Author Organization [facility] [employer] Address [address] [place] [address] Care Team Providers Care Tuber Operator Name Role Phone Husam Farris MD Primary Care Provider [phone] Source Comments [facility] [employer],non-owned Affiliates and Associated Physician Practices is amultiple site organization consisting of ambulatory clinics and hospital sitesin [place], [place], [place] and [place]. This disclosure is being madepursuant to the Care Everywhere program and may not contain all information available regarding this patient. Last updated 18.[facility] [employer] Allergies Active Allergy Reactions Criticality Noted Date [...] on exertion) 05/01/2021 Other chest pain 05/01/2021 Family History Medical History Relation Name Comments None Known Brother None Known Father None Known Maternal Aunt None Known Maternal Grandfather None Known Maternal Grandmother None Known Maternal Uncle Cancer - Skin, Non Melanoma Mother None Known Other None Known Paternal Aunt None Known Paternal Grandfather None Known Paternal Grandmother None Known Paternal Uncle None Known Sister Asthma Neg Hx CVA Neg Hx Cancer - Breast Neg Hx Cancer - Other Neg Hx Cancer - Skin, Melanoma Neg Hx Eczema Neg Hx Hemophilia Neg Hx Psoriasis Neg Hx Relation Name Status Comments Brother Father Maternal Aunt Maternal Grandfather Maternal Grandmother Maternal Uncle Mother Other Paternal Aunt Paternal Grandfather Paternal Grandmother Paternal Uncle Sister Social History Tobacco Use Types Packs/Day Years [...] Health Maintenance Due Date Last Done Comments COLOGUARD (AGES 45-75) - COL ON CA SCREENING 1966 COLON MONITORING 1966 COLONOSCOPY - COLON CA SCREENING 1966 CT COLONOGRAPHY - COLON CA SCREENING 1966 Colorectal Cancer Screening 1966 FIT - COLON CA SCREENING 1966 FLEX SIG - COLON CA SCREENING 1966 LIPID TESTING 1966 MAMMOGRAM 1966 MEDICARE AWV 12 MONTHS 1966 PAP SMEAR 1966 HIV SCREENING 1981 HEPATITIS C SCREENING 07/03/1984 DTAP/TDAP/TD VACCINES (1 - Tdap) 1985 HEPATITIS B VACCINE (1 of 3 - 19+ 3-dose series) 1985 PNEUMOCOCCAL VACCINE 50+ (1 of 1 - PCV) 2016 ZOSTER VACCINE (1 of 2) 2016 COVID-19 VACCINE ( - 2023-2 5 season) 2024 INFLUENZA VACCINE (#1) 2024 DEPRESSION SCREENING 10/18/2024 HIB VACCINE Aged Out No longer eligi ble based on patient's age to complete this topic HPV VACCINE Aged Out No longer eligi ble based on patient's age to complete this topic MENINGOCOCCAL (Group B) VACCINE Aged Out No longer eligible based on patient's age to complete this topic MENINGOCOCCAL VACCINE Aged Out No breonna joanne eligible based on patient's age to complete this topic PNEUMOCOCCAL VACCINE Aged Out No long er eligible based on patient's age to complete this topic Care Teams Tuber Operator Relationship Specialty Start Date End Date Husam Farris MD [address] [facility] [address] [place] [address] PCP - General 05/26/17
--- OUTSIDE RECORDS SUMMARY | 2024-12-06 08:30 | XMS_ITS | Clinical Summary ---
Author Organization [facility] Address [address] [facility] [address] [place] [address] Care Team Providers Care Compensator Name Role Phone Husam Farris MD Primary Care Provider [phone] Allergies Active Allergy Reactions Criticality Noted Date Comments Nitrofurantoin Hives High 07/28/2017 Medications venlafaxine (EFFEXOR XR) 150 mg Extended Release 24 hour capsule TK 1 T PO BID 2 05/05/2019 Active spironolactone (ALDACTONE) 25 mg tablet TK 1 T PO QD 2 05/22/2019 Active buPROPion (WELLBUTRIN) 75 mg tablet TK 1 T PO BID 2 05/22/2019 Active tiZANidine (ZANAFLEX) 4 mg Tablet 06/19/2019 Active traZODone (DESYREL) 50 mg tablet TK 1 T PO ONCE A DAY AFTER A MEAL. 1 04/02/2019 Active levothyroxine 50 mcg tablet TK 1 T PO QD 2 05/05/2019 Active meloxicam (MOBIC) 15 mg tablet TK 1 T PO QD 2 05/31/2019 Active estradiol (ESTRACE) 2 mg tablet Take 2 mg by mouth. 07/28/2017 Active phentermine (ADIPEX P) 37.5 mg tablet TK 1 T PO QD B EMANUEL 0 05/04/2019 Active topiramate (TOPAMAX) 25 mg tablet 05/21/2019 Active ALPRAZolam (XANAX) 0.5 mg tablet TK 1 T PO BID PRN 0 05/22/2019 Active gabapentin (NEURONTIN) 300 mg capsule TK 1 C PO TID 2 05/31/2019 Active oxyCODONE-acetam inophen (PERCOCET) 5-325 mg tablet 06/15/2019 Active Active Problems No known active problems Family History Medical History Relation Name Comments Diabetes Brother 1 Healthy Brother 2 Diabetes Father Heart Surgery Father stints Thyroid Disease Father hypo Diabetes Mother Glaucoma Mother Heart Failure Mother Heart Surgery Mother stint Kidney Disease Mother Skin Cancer Mother Stroke Mother Uterine Cancer Mother Healthy Sister Relation Name Status Comments Brother 1 Alive Brother 2 Alive Father Mother Sister Alive Social History Tobacco Use Types Packs/Day Years Used Date Smoking Tobacco: Never Smokeless Tobacco: Never Alcohol Use Standard Drinks/Week Comments Yes 0 (1 standard drink = 0.6 oz pur e alcohol) Comments Unknown Sex and Gender Information Value Date Recorded Sex Assigned at Not on file 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 Gender Identity Not on file Sexual Orientation Not on file Last Filed Vital Signs Vital Sign Reading Time Taken Comments Blood Pressure - - Pulse - - Temperature - - Respiratory Rate - - Oxygen Saturation - - Inhaled Oxygen Concentration - - Weight 103.4 kg (228 lb) 06/21/2019 3:14 PM CDT Height 175.3 cm (5' 9 ) 06/21/2019 3:14 PM CDT Body Mass Index 33.67 06/21/2019 3:14 PM CDT Plan of Treatment Health Maintenance Due Date Last Done Comments DTAP/TDAP/TD VACCINES (1 - Tdap) 1985 HEPATITIS B VACCINES (1 of 3 - 19+ 3-dose series) 1985 CERVICAL CANCER SCREENING 1996 BREAST CANCER SCREENING 2006 COLORECTAL SCREENING 2011 Colorectal Cancer Screening 2011 FIT-DNA Q 3 years 2011 FIT/FOBT Q 1 year 2011 Flex Sig/CT Colonography Q 5 years 2011 ZOSTER VACCINE (1 of 2) 2016 INFLUENZA VACCINE (#1) 2024 PNEUMOCOCCAL VACCINE 0-64 YEARS Aged Out No longer eligible based on patient's age to complete this topic Insurance MEDICARE PART A AND B MEDICAID [place] Care Teams Compensator Relationship Specialty Start Date End Date Husam Farris MD [address] [place] [address] PCP - General Internal Medicine 05/22/19
--- OUTSIDE RECORDS SUMMARY | 2024-12-06 08:30 | XMS_ITS | Encounter Summary ---
Author Organization [employer] Address 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
== END 2024-12-06 08:21 | disposition home or self-care (01) ==
LOC: ANHIMG 08:23
PROVIDERS: PCP Emergency Medicine; Visit Provider Obstetrics & Gynecology
DX: Z12.31 Encounter for screening mammogram for malignant neoplasm of breast (principal)
CPT/HCPCS: 77063; 77067

== ENCOUNTER 2024-12-07 14:02 | Outpatient (CLI) | payer MEDICARE, MEDICAID, SELFPAY ==
--- NOTE | ~2024-12-07 | CT_ITS ---
EXAMINATION: CT pelvis wo con DATE: 12/07/2024 14:24 INDICATION: Sacroiliitis, not elsewhere classified. TECHNIQUE: Computed tomography (CT) of the pelvis was performed without intravenous contrast. Automat ed exposure control and iterative reconstruction technique were employed. The dose-length product was 876.77 mGy-cm. COMPARISON: CT abdomen and pelvis 05/14/2022. FINDINGS: There are no dilated loops of bowel. The appendix is normal. There are no pathologically en larged lymph nodes. There is no free intraperitoneal fluid. Alignment is normal. No fracture. There i s moderate osteoarthritis of the sacroiliac joints. There is moderate osteoarthritis of the hips. The re is severe lower lumbar spondylosis. IMPRESSION: 1. Moderate osteoarthritis of the sacroiliac joints. Reviewed, dictated and finalized at location A. RTISING SALES ASSOCIATE
--- NOTE | ~2024-12-07 | XR_ITS ---
EXAMINATION: XR pelvis min 3V DATE: 12/07/2024 14:31 INDICATION: Sacroiliitis, not elsewhere classified. TECHNIQUE: An anteroposterior view of the pelvis was obtained. COMPARISON: CT pelvis 12/07/2024 FINDINGS: There is lumbar dextrocurvature and severe spondylosis. No fracture. There is mild osteoart hritis of the hips and sacroiliac joints. IMPRESSION: 1. Mild polyarticular osteoarthritis. Reviewed, dictated and finalized at location A. CAL REGISTRAR
--- OUTSIDE RECORDS SUMMARY | 2024-12-07 14:08 | XMS_ITS | Continuity of Care Document ---
Author Organization [facility] Address [address] [place] [address] Phone Care Team Providers Care Ore Buyer Name Role Phone Duran OD, Matt Unavailable Unavailable Procedures Procedure Date No Charge Contact Lens Check No Charge Contact Lens Check Eye Exam & Treatment Refraction Advance Directives Directive Yes / No Effective Date File Name No Information Encounters Encounter Description Practice Location Reason(s) For Visit Diagnoses Date Provider Providers Copied on Encounter [facility], [address] [place] [address] [address], [place], [place], [id number], tel:[phone] [facility] No Information 5-200 9 Duran OD Matt. [address] [facility] , [address], [place], [place], [facility], [place]. tel:[phone] [facility], [address] [place] [address] [address], [place], [place], [address], tel:[phone] [facility] No Information 2-200 9 Duran OD Matt. [address] , [address], [place], [address], [place]. tel:[phone] [facility], [address] [place] [address] [address], [place], [place], [address], [place] tel:[phone] [facility] No Information 5-200 9 Duran OD Matt. [address] , [address], [place], [address], [place]. tel:[phone] Family History Family Member Type Diagnosis Age At Onset No Information Payers Payer name Insurance type Covered green party ID Authoriza tion(s) No Information Social [...]
--- OUTSIDE RECORDS SUMMARY | 2024-12-07 14:08 | XMS_ITS | Clinical Summary ---
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
--- OUTSIDE RECORDS SUMMARY | 2024-12-07 14:08 | XMS_ITS | Referral Summary ---
Author Organization [facility] Address [address] [facility] [place] [address] Care Team Providers Care Fireman Name Role Phone Husam Farris MD Primary Care Provider [phone] Source Comments [facility],non-owned Affiliates and Associated Physician Practices is amultiple site organization consisting of ambulatory clinics and hospital sitesin [place], [place], [place] and [place]. This disclosure is being madepursuant to the Care Everywhere program and may not contain all information available regarding this patient. Last updated 18.[facility] Allergies Active Allergy Reactions Criticality Noted Date [...] of Treatment Not on file Care Teams Fireman Relationship Specialty Start Date End Date Husam Farris MD [address] [facility] [address] [place] [address] PCP - General 05/26/17
--- OUTSIDE RECORDS SUMMARY | 2024-12-07 14:08 | XMS_ITS | Clinical Summary ---
Author Organization [facility] Address [address] 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
--- OUTSIDE RECORDS SUMMARY | 2024-12-07 14:08 | XMS_ITS | Encounter Summary ---
Author Organization [facility] Address 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
--- OUTSIDE RECORDS SUMMARY | 2024-12-07 14:08 | XMS_ITS | Encounter Summary ---
Author Organization [employer] Address 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
--- OUTSIDE RECORDS SUMMARY | 2024-12-07 14:08 | XMS_ITS | Clinical Summary ---
Author Organization [facility] Address [address] [place] [address] Care Team Providers Care Acquisition Analyst Name Role Phone Husam Farris MD Primary Care Provider [phone] Source Comments [facility],non-owned Affiliates and Associated Physician Practices is amultiple site organization consisting of ambulatory clinics and hospital sitesin [place], [place], [place] and [place]. This disclosure is being madepursuant to the Care Everywhere program and may not contain all information available regarding this patient. Last updated 18.[facility] Allergies Active Allergy Reactions Criticality Noted Date [...] age to complete this topic Care Teams Acquisition Analyst Relationship Specialty Start Date End Date Husam Farris MD [address] [facility] [address] [place] [address] PCP - General 05/26/17
--- OUTSIDE RECORDS SUMMARY | 2024-12-07 14:08 | XMS_ITS | Patient Health Summary ---
Author Organization [facility] Address [address] [facility] [place] [address] Care Team Providers Care Roll On Worker Name Role Phone Husam Farris MD Primary Care Provider [phone] Note from [facility],non-owned Affiliates and Associated Physician Practices is amultiple site organization consisting of ambulatory clinics and hospital sitesin [place], [place], [place] and [place]. This disclosure is being madepursuant to the Care Everywhere program and may not contain all information available regarding this patient. Last updated 18.[facility] Allergies * Nitrofurantoin(Skin Reactions,Urticaria) -High Criticality Medications [...] Sexual Orientation Not on file Procedures * MO DESTRUCT BENIGN LESION, 1-14(Performed 07/07/2021) Performed for Inflamed seborrheic keratosis * DERMATOPATHOLOGY(Performed 07/28/2017) Results * MO DESTRUCT BENIGN LESION, 1-14 (07/07/2021 1:16 PM CDT) Chris Arrington MD - 07/07/2021 1:16 PM CDT Suni Thompson MD 07/07/2021 1:37 PM Diagnosis and treatment options discussed. Cryotherapy (Liquid Nitrogen) to 2 ISKs on L arm and R thigh and 2 warts on R thumb and left foot for 4-6 seconds. Number of cycles: 1. Wound care reviewed. Suni Thompson M.D. [facility] Resident, PGY-IV Chris Richmond MD PROCEDURE/MINOR [...] specimen consists of a shave biopsy measuring [id number]. Jar 0. MICROSCOPIC DESCRIPTION: There are nests of melanocytes at the dermal-epiderm al junction and within the dermis. Electronically signed out by Roberta Rey M.D. 07/29/2017 11:51:01AM [facility] Comment: Performed at: Dermatopathology Laboratory [facility] - Department of Dermatology [address] [place] [address] [place] [address] Phone number: [phone] FAX: [phone] Skin (tissue) specimen (specimen) 07/28/2017 07/28/2017 Narrative [facility] - 07/29/2017 11:51 AM CDT How many specimens?->1 Specimen A: Type->Shave Site->mid lower back History->jason papule Impression->irritated nevus r/o atypia Check Margins:->No Prior Biopsy->No Viky Rivera MD LAB - PATHOLOGY/CYTO LOGY ORDERABLES [facility] [address] [place] [address]. 5th Floor Lab [address] [phone] Care Teams Roll On Worker Relationship Specialty Start Date End Date Husam Farris MD [address] [address] PCP - General 05/26/17
== END 2024-12-07 14:03 | disposition home or self-care (01) ==
PROVIDERS: PCP Emergency Medicine; Visit Provider Physical Medicine & Rehabilitation Pain Medicine
DX: M46.1 Sacroiliitis, not elsewhere classified (principal); M16.0 Bilateral primary osteoarthritis of hip
CPT/HCPCS: 72190; 72192

== ENCOUNTER 2025-01-12 13:39 | Outpatient (CLI) | payer MEDICARE, MEDICAID, SELFPAY ==
--- NOTE | ~2025-01-12 | XR_ITS ---
[id number] 01/12/2025 13:56 Indication: Right knee pain for 2 months Procedure: 2 views right knee Comparison: No prior studies for comparison. Findings: There is tricompartment osteoarthritis, severe in the patellofemoral joint. There is a loos e body posterior medial to the medial tibial plateau. No significant joint effusion. No acute fractur e. Impression: 1: Tricompartment osteoarthritis of the right knee, severe in the patellofemoral compartment. Reviewed, dictated and finalized at location A. Impression: 1: Tricompartment osteoarthritis of the right knee, severe in the patellofemora l compartment.
--- NOTE | ~2025-01-12 | XR_ITS ---
[id number] 01/12/2025 13:56 Indication: Right knee pain and swelling Procedure: 2 views right knee Comparison: No prior studies for comparison. Findings: There is tricompartment osteoarthritis of the left knee, most advanced in the medial compar tment. No joint effusion. No fracture or traumatic malalignment. Impression: 1: Moderate tricompartment osteoarthritis of the left knee. Reviewed, dictated and finalized at location A. Impression: 1: Moderate tricompartment osteoarthritis of the left knee.
--- OUTSIDE RECORDS SUMMARY | 2025-01-12 13:48 | XMS_ITS | Clinical Summary ---
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
--- OUTSIDE RECORDS SUMMARY | 2025-01-12 13:48 | XMS_ITS | Continuity of Care Document ---
Author Organization [facility] Address [address] [place] [address] Phone Care Team Providers Care Engineering Documentation Specialist Name Role Phone Duran OD, Matt Unavailable Unavailable Procedures Procedure Date No Charge Contact Lens Check No Charge Contact Lens Check Eye Exam & Treatment Refraction Advance Directives Directive Yes / No Effective Date File Name No Information Encounters Encounter Description Practice Location Reason(s) For Visit Diagnoses Date Provider Providers Copied on Encounter [facility], [address] [place] [address] [address], [place], [place], [id number], tel:[phone] [address] [facility] No Information 5-200 9 Duran OD Matt. [address] [facility] , [address], [place], [place], [facility] [place], [place]. tel:[phone] [facility], [address] [place] [address] [address], [place], [place], [id number], tel:[phone] [facility] No Information 2-200 9 Duran OD Matt. [address] , [address], [place], [address], [place]. tel:[phone] [facility], [address] [place] [address] [address], [place], [place], [id number], [place] tel:[phone] [facility] No Information 5-200 9 Duran OD Matt. [address] , [address], [place], [address], [place]. tel:[phone] Family History Family Member Type Diagnosis Age At Onset No Information Payers Payer name Insurance type Covered republican ID Authoriza tion(s) No Information Social History [...]
--- OUTSIDE RECORDS SUMMARY | 2025-01-12 13:48 | XMS_ITS | Clinical Summary ---
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 Gender Identity Not on file Sexual [...] of 3 - 19+ 3-dose series) 1985 PAP SMEAR 1987 CERVICAL CANCER SCREENING 1996 HPV/Cotest (30-65) 1996 PAP SMEAR 1996 BREAST CANCER SCREENING 2006 COLORECTAL SCREENING 2011 Colorectal Cancer Screening 2011 FIT-DNA Q 3 years 2011 FIT/FOBT Q 1 year 2011 Flex Sig/CT Colonography Q 5 years 2011 ZOSTER VACCINE (1 of 2) 2016 INFLUENZA VACCINE (#1) 2024 PNEUMOCOCCAL VACCINE 0-49 YEARS Aged Out No longer eligible based on patient's age to complete this topic Insurance MEDICARE PART A AND B [place]ICAID [place] Care Teams Asbestos Shingle Inspector Relationship Specialty Start Date End Date Husam Farris MD [address] [place] [address] PCP - General Internal Medicine 05/22/19
--- OUTSIDE RECORDS SUMMARY | 2025-01-12 13:48 | XMS_ITS | Clinical Summary ---
Author Organization [facility] Address [address] [facility] [place] [address] Care Team Providers Care Deburring Technician Name Role Phone Husam Farris MD Primary Care Provider [phone] Source Comments [facility],non-owned Affiliates and Associated Physician Practices is amultiple site organization consisting of ambulatory clinics and hospital sitesin [place], [place], [place] and [place]. This disclosure is being madepursuant to the Care Everywhere program and may not contain all information available regarding this patient. Last updated 18.[facility] Allergies Active Allergy Reactions Criticality Noted Date [...] FLEX SIG - COLON CA SCREENING 1966 MAMMOGRAM 1966 MEDICARE AWV 12 MONTHS 1966 PAP SMEAR 1966 HIV SCREENING 1981 HEPATITIS C SCREENING 07/03/1984 DTAP/TDAP/TD VACCINES (1 - Tdap) 1985 HEPATITIS B VACCINE (1 of 3 - 19+ 3-dose series) 1985 PNEUMOCOCCAL VACCINE 50+ (1 of 1 - PCV) 2016 ZOSTER VACCINE (1 of 2) 2016 COVID-19 VACCINE (1 - 2023-2 5 season) 2024 INFLUENZA VACCINE (#1) 2024 DEPRESSION SCREENING 10/18/2024 LIPID TESTING 05/01/2026 05/01/2021 HIB VACCINE Aged Out No longer eligi ble based on patient's age to complete this topic HPV VACCINE Aged Out No longer eligi ble based on patient's age to complete this topic MENINGOCOCCAL (Group B) VACC INE SHARED DECISION-MAKING Aged Out No longer eligibl e based on patient's age to complete this topic MENINGOCOCCAL GROUPS A/C/Y/W VACCINE Aged Out No longer eligible b ased on patient's age to complete this topic PNEUMOCOCCAL VACCINE Aged Out No long er eligible based on patient's age to complete this topic Care Teams Deburring Technician Relationship Specialty Start Date End Date Husam Farris MD [address] [facility] [address] [place] [address] PCP - General 05/26/17
--- OUTSIDE RECORDS SUMMARY | 2025-01-12 13:48 | XMS_ITS | Encounter Summary ---
Author Organization [employer] Address 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
--- OUTSIDE RECORDS SUMMARY | 2025-01-12 13:48 | XMS_ITS | Encounter Summary ---
Author Organization [employer] Address 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
== END 2025-01-12 13:40 | disposition home or self-care (01) ==
LOC: ANHIMG 13:41
PROVIDERS: PCP Emergency Medicine; Visit Provider Emergency Medicine
DX: M17.0 Bilateral primary osteoarthritis of knee (principal)
CPT/HCPCS: 73560

== ENCOUNTER 2025-01-15 10:11 | Outpatient (CLI) | payer MEDICARE, MEDICAID, SELFPAY ==
[2025-01-15 10:33] LABS: Basophils Percent Auto 0.5 % (0.2-1.2); Eosinophils Absolute Auto 0.1 K/mm3 (0-0.3); Eosinophils Percent Auto 1.7 % (0-4.4); Hematocrit 38.2 % (37.0-47.0); Immature Granulocyte Absolute 0.02 K/mm3 (0.00-0.031); Immature Granulocyte Percent A 0.3 % (0-0.5); Lymphocytes Percent Auto 28.6 % (18.3-44.2); Mean Corpuscular Hemoglobin 31.5 pg (26-34); Mean Corpuscular Volume 92.5 fl (80-100); Mean Platelet Volume 9.9 fl (7.4-10.4); Monocytes Absolute Auto 0.4 K/mm3 (0.1-0.6); Monocytes Percent Auto 5.6 % (2.6-8.5); Neutrophils Percent Auto 63.3 % (45.5-73.1); Platelet Count Result 224 k/mm3 (150-375); Red Blood Count 4.13 M/mm3 (4.2-5.4); Red Cell Distribution Width 14.2 % (11.5-14.5); White Blood Count 6.3 K/mm3 (4.5-10.0)
[2025-01-15 10:48] LABS: Alanine Aminotransferase 24 U/L (6-35); Albumin Level 4.2 g/dL (3.5-5.1); Alkaline Phosphatase 63 U/L (38-126); Anion Gap 8 mmol/L (4-12); Aspartate Amino Transferase 37 U/L (14-36); Bilirubin,Total 0.8 mg/dL (0.2-1.3); Blood Urea Nitrogen 15 mg/dL (7-17); Calcium 9.1 mg/dL (8.4-10.2); Carbon Dioxide 30 mmol/L (22-30); Chloride 100 mmol/L (98-107); Cholesterol 148 mg/dL (0-200); Estimated Glomerular Filt Rate 57; Glucose 114 mg/dL (65-110); HDL Direct 81 mg/dL; Potassium 3.5 mmol/L (3.4-5.0); Sodium 138 mmol/L (137-145); Triglycerides 202 mg/dL (<150)
[2025-01-15 10:59] LABS: LDL Cholesterol Direct 48 mg/dL
--- OUTSIDE RECORDS SUMMARY | 2025-01-15 11:10 | XMS_ITS | Encounter Summary ---
Author Organization [employer] Address 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
--- OUTSIDE RECORDS SUMMARY | 2025-01-15 11:10 | XMS_ITS | Continuity of Care Document ---
Author Organization [facility] Address [address] [facility] [address] [place] [address] Phone Care Team Providers Care Audiologist Name Role Phone Duran OD, Matt Unavailable Unavailable Procedures Procedure Date No Charge Contact Lens Check No Charge Contact Lens Check Eye Exam & Treatment Refraction Advance Directives Directive Yes / No Effective Date File Name No Information Encounters Encounter Description Practice Location Reason(s) For Visit Diagnoses Date Provider Providers Copied on Encounter [facility], [address] [place] [address] [address], [place], [place], [id number], tel:[phone] [address] [facility] No Information 5-200 9 Duran OD Matt. [address] [facility] , [address], [place], [place], [facility], [place]. tel:[phone] [facility], [address] [place] [address] [address], [place], [place], [address], tel:[phone] [address] [facility] No Information 2-200 9 Duran OD Matt. [address] , [address], [place], [address], [place]. tel:[phone] [facility], [address] [place] [address] [address], [place], [place], [id number], [place] tel:[phone] [address] [facility] No Information 5-200 9 Duran OD Matt. [address] , [address], [place], [address], [place]. tel:[phone] Family History Family Member Type Diagnosis Age [...]
--- OUTSIDE RECORDS SUMMARY | 2025-01-15 11:10 | XMS_ITS | Clinical Summary ---
Author Organization [facility] Address [address] [place] [address] Care Team Providers Care Square Cutter Name Role Phone Husam Farris MD Primary Care Provider [phone] Source Comments [facility],non-owned Affiliates and Associated Physician Practices is amultiple site organization consisting of ambulatory clinics and hospital sitesin [place], [place], [place] and [place]. This disclosure is being madepursuant to the Care Everywhere program and may not contain all information available regarding this patient. Last updated 18.[facility] Allergies Active Allergy Reactions Criticality Noted Date [...] age to complete this topic Care Teams Square Cutter Relationship Specialty Start Date End Date Husam Farris MD [address] [facility] [address] [place] [address] PCP - General 05/26/17
--- OUTSIDE RECORDS SUMMARY | 2025-01-15 11:10 | XMS_ITS | Encounter Summary ---
Author Organization [employer] Address 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
--- OUTSIDE RECORDS SUMMARY | 2025-01-15 11:10 | XMS_ITS | Clinical Summary ---
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
--- OUTSIDE RECORDS SUMMARY | 2025-01-15 11:10 | XMS_ITS | Clinical Summary ---
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
--- OUTSIDE RECORDS SUMMARY | 2025-01-15 11:25 | XMS_ITS | Continuity of Care Document ---
Author Organization [facility] Address [address] [facility] [address] [place] [address] Phone Care Team Providers Care River Transportation Worker Name Role Phone Duran OD, Matt Unavailable Unavailable Procedures Procedure Date No Charge Contact Lens Check No Charge Contact Lens Check Eye Exam & Treatment Refraction Advance Directives Directive Yes / No Effective Date File Name No Information Encounters Encounter Description Practice Location Reason(s) For Visit Diagnoses Date Provider Providers Copied on Encounter [facility], [address] [place] [address] [address], [place], [place], [id number], tel:[phone] [address] [facility] No Information 5-200 9 Duran OD Matt. [address] [facility] , [address], [place], [place], [facility], [place]. tel:[phone] [facility], [address] [place] [address] [address], [place], [place], [id number], tel:[phone] [facility] No Information 2-200 9 Duran OD Matt. [address] , [address], [place], [address], [place]. tel:[phone] [facility], [address] [place] [address] [address], [place], [place], [id number], [place] tel:[phone] [facility] No Information 5-200 9 Duran OD Matt. [address] , [address], [place], [address], [place]. tel:[phone] Family History Family Member Type Diagnosis Age [...]
[2025-01-15 11:48] LABS: Vitamin D 25 Hydroxy 13.6 ng/mL
[2025-01-15 14:50] LABS: Hemoglobin A1C 5.1 % (<5.7)
== END 2025-01-15 10:12 | disposition home or self-care (01) ==
PROVIDERS: PCP Emergency Medicine; Visit Provider Emergency Medicine
DX: E55.9 Vitamin D deficiency, unspecified (principal); E78.5 Hyperlipidemia, unspecified; I10 Essential (primary) hypertension; R53.83 Other fatigue; E11.9 Type 2 diabetes mellitus without complications
CPT/HCPCS: 36415; 80053; 80061; 82306; 83036; 84443; 85025

== ENCOUNTER 2025-01-29 10:27 | Outpatient (CLI) | payer MEDICARE, MEDICAID, SELFPAY ==
--- NOTE | 2025-01-29 10:01 | ECHO_ITS ---
Patient Info Name: Kathy Franco Age: 59 years : 1965 Gender: Female Ht: 69 in Wt: 230 lbs BSA: 2.29 m2 HR: 70 bpm BP: 130 / 83 mmHg Technical Quality: Good Exam Date: 01/29/2025 10:04 AM Exam Location: Echo Lab Patient Status: Outpatient Admit Date: 01/29/2025 Staff Ordering Physician: Husam Farris MD Attending Provider: Husam Farris MD Referring Physician: Kaleigh BATES; Exam Type: CA echo doppler color flow Study Info Indications R00.2 - Palpitations R60.9 - Edema, unspecified Complete two-dimensional, color flow and Doppler transthoracic echocardiogram is performed. Summary 1. Complete two-dimensional, color flow and Doppler transthoracic echocardiogram is performed. 2. Left ventricular chamber dimension is normal. 3. Left ventricular systolic function is normal, estimated at 65-70%. 4. There is mild concentric increased left ventricular wall thickness. 5. The left ventricular diastolic function is abnormal. 6. E/e' 10 is mildly elevated. 7. There is mild mitral valve regurgitation. 8. There is mild tricuspid valve regurgitation. 9. No pulmonary hypertension, estimated pulmonary arterial systolic pressure is 37 mmHg. Left Ventricle E/e' 10 is mildly elevated. Left ventricular chamber dimension is normal. Left ventricular systolic function is normal, estimated at 65-70%. There is mild concentric increased left ventricular wall thickness. The left ventricular diastolic function is abnormal. Right Ventricle Right ventricular systolic function is normal and with normal TAPSE 2.5 cm. Right ventricular chamber dimension is normal. Left Atria Left atrial chamber dimension is normal. Right Atria Right atrial chamber dimension is normal. Aortic Valve The aortic valve is trileaflet. There is no aortic valve stenosis. There is no aortic valve regurgitation. Pulmonic Valve There is no pulmonic regurgitation. Mitral Valve There is no mitral valve stenosis. There is mild mitral valve regurgitation. Tricuspid Valve There is mild tricuspid valve regurgitation. No pulmonary hypertension, estimated pulmonary arterial systolic pressure is 37 mmHg. Pericardium/Pleural There is no pericardial effusion. Inferior Vena Cava Normal inferior vena cava with >50% collapse upon inspiration consistent with normal right atrial pressure, 5 mmHg. Aorta The aortic root size at the sinus of Valsalva is normal. Left Ventricular Outflow Tract Name Value Normal LVOT 2D LVOT Diameter 2.0 cm LVOT Doppler LVOT Peak Gradient 5 mmHg LVOT Mean Gradient 3 mmHg LVOT VTI 28 cm LVOT VTI/AV VTI Ratio 1.1 LVOT Stroke Volume 87 ml LVOT CO 5.8 l/min LVOT CI 2.5 l/min/m2 Pulmonic Valve Name Value Normal RVOT Doppler RVOT Peak Gradient 3 mmHg PV Doppler PV Peak Gradient 6 mmHg Mitral Valve Name Value Normal MV Doppler MV Decel Blount 711 cm/s2 MV PHT 45 ms MV Area (PHT) 4.9 cm2 4.0-5.0 MV Diastolic Function MV E Peak Velocity 110 cm/s MV A Peak Velocity 57 cm/s MV E/A 1.9 MV Decel Time 154 ms Tricuspid Valve Name Value Normal TV Regurgitation Doppler TR Peak Velocity 282 cm/s TR Peak Gradient 32 mmHg Estimated PAP/RSVP RA Pressure 5 mmHg <=5 PA Systolic Pressure 37 mmHg <36 RV Systolic Pressure 37 mmHg <36 Aorta Name Value Normal Ascending Aorta Ao Root Diameter (MM) 3.2 cm Ao Root Diam Index (MM) 1.4 cm/m2 Aortic Valve Name Value Normal AV Doppler AV Peak Velocity 119 cm/s AV Peak Gradient 6 mmHg AV Mean Gradient 3 mmHg AV VTI 26 cm AV Area (Cont Eq VTI) 3.4 cm2 >=3.0 AV Area (Cont Eq Vinay) 3.0 cm2 AV Regurgitation 2D LVOT Area 3.1 cm2 Ventricles Name Value Normal LV Dimensions 2D/MM IVS Diastolic Thickness (2D) 1.1 cm 0.6-1.0 IVS Diastole Thickness (MM) 0.9 cm 0.6-0.9 LVID Diastole (2D) 4.7 cm 3.8-5.2 LVID Diastole (MM) 5.5 cm 3.8-5.2 LVIW Diastolic Thickness (2D) 1.2 cm 0.6-0.9 LVIW Diastolic Thickness (MM) 1.0 cm 0.6-0.9 LVID Systole (2D) 2.2 cm 2.2-3.5 LVID Systole (MM) 2.8 cm 2.2-3.5 LVOT Diameter 2.0 cm LV Mass (2D Cubed) 194.91 g 67.00-162.00 LV Mass Index (2D Cubed) 85 g/m2 43-95 Relative Wall Thickness (2D) 0.50 LV Mass (MM Cubed) 208.50 g 67.00-162.00 LV Mass Index (MM Cubed) 91 g/m2 43-95 Relative Wall Thickness (MM) 0.37 LV Fractional Shortening/Ejection Fraction 2D/MM LV Fractional Shortening (2D) 54 % 27-45 LV Fractional Shortening (MM) 48 % 27-45 LV EF (MM Teicholz) 79 % 54-74 LV EF (2D Teicholz) 85 % 54-74 LV Diastolic Volume (4C MOD) 73 ml LV EF (4C MOD) 73 % LV Diastolic Volume (2C MOD) 78 ml LV EF (2C MOD) 70 % LV Diastolic Volume (BP MOD) 75 ml 46-106 LV Diastolic Volume Index (BP MOD) 33 ml/m2 29-61 LV Systolic Volume (BP MOD) 22 ml 14-42 LV Systolic Volume Index (BP MOD) 10 ml/m2 8-24 LV EF (BP MOD) 71 % 54-74 LV Diastolic Length (4C) 7.8 cm LV Systolic Length (4C) 5.7 cm LV Stroke Volume (4C MOD) 53 ml Atria Name Value Normal LA Dimensions LA Dimension (MM) 4.2 cm 2.7-3.8 LA Volume (4C A-L) 53 ml LA Volume (BP A-L) 64 ml RA Dimensions RA Area (4C) 15.5 cm2 <=18.0 Report Signatures
--- OUTSIDE RECORDS SUMMARY | 2025-01-29 11:01 | XMS_ITS | Continuity of Care Document ---
Author Organization [facility] Address [address] [place] [address] Phone Care Team Providers Care Blueprint Trimmer Name Role Phone Duran OD, Matt Unavailable Unavailable Procedures Procedure Date No Charge Contact Lens Check No Charge Contact Lens Check Eye Exam & Treatment Refraction Advance Directives Directive Yes / No Effective Date File Name No Information Encounters Encounter Description Practice Location Reason(s) For Visit Diagnoses Date Provider Providers Copied on Encounter [facility], [address] [place] [address] [address], [place], [place], [id number], tel:[phone] [facility] No Information 5-200 9 Duran OD Matt. [address] [facility] [address] [address] , [address], [place], [place], [facility], [place]. tel:[phone] [facility], [address] [place] [address] [address], [place], [place], [id number], tel:[phone] [facility] No Information 2-200 9 Duran OD Matt. [address] , [address], [place], [address], [place]. tel:[phone] [facility], [address] [place] [address] [address], [place], [place], [id number], [place] tel:[phone] [facility] No Information 5-200 9 Duran OD Matt. [address] , [address], [place], [address], [place]. tel:[phone] Family History Family Member Type Diagnosis Age [...]
--- OUTSIDE RECORDS SUMMARY | 2025-01-29 11:01 | XMS_ITS | Encounter Summary ---
Author Organization [employer] Address [address] [place] [address] Care Team Providers Care Freelance Interpreter/Translator Name Role Phone Husam Farris MD Primary Care Provider [phone] Encounter Details Date Type Department Care Team (Late st Contact Info) Description 07/31/2002 Outpatient Historical [facility] DE[facility] IvanJaison MD [address] [facility] [address] [place] [address] BENIGN NEOPLASM BRAIN (CMS/HCC) (Primary Dx) Social History Tobacco Use Types Packs/Day Years Used Date Smoking Tobacco: Never Assessed Comments Unknown Sex and Gender Information Value Date Recorded Sex Assigned at Not on file 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
--- OUTSIDE RECORDS SUMMARY | 2025-01-29 11:01 | XMS_ITS | Encounter Summary ---
Author Organization [email or web address] Address 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
--- OUTSIDE RECORDS SUMMARY | 2025-01-29 11:01 | XMS_ITS | Clinical Summary ---
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
--- OUTSIDE RECORDS SUMMARY | 2025-01-29 11:01 | XMS_ITS | Clinical Summary ---
Author Organization [facility] Address [address] [facility] [address] [facility] [address] Care Team Providers Care Superintendent Fish Hatchery Name Role Phone Husam Farris MD Primary Care Provider [phone] Source Comments [facility],non-owned Affiliates and Associated Physician Practices is amultiple site organization consisting of ambulatory clinics and hospital sitesin [place], [place], [place] and [place]. This disclosure is being madepursuant to the Care Everywhere program and may not contain all information available regarding this patient. Last updated 18.[facility] Allergies Active Allergy Reactions Criticality Noted Date Comments Nitrofurantoin Skin Reactions,Urticaria High 017 Medications * Be aware that medications may not be up to date on this document. Alwaysverify current medications with the patient. 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
--- OUTSIDE RECORDS SUMMARY | 2025-01-29 11:01 | XMS_ITS | Clinical Summary ---
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
--- OUTSIDE RECORDS SUMMARY | 2025-01-29 11:43 | XMS_ITS | Continuity of Care Document ---
Author Organization [facility] Address [address] [place] [address] Phone Care Team Providers Care Turnaround Engineer Name Role Phone Duran OD, Matt Unavailable Unavailable Procedures Procedure Date No Charge Contact Lens Check No Charge Contact Lens Check Eye Exam & Treatment Refraction Advance Directives Directive Yes / No Effective Date File Name No Information Encounters Encounter Description Practice Location Reason(s) For Visit Diagnoses Date Provider Providers Copied on Encounter [facility], [address] [place] [address] [address], [place], [place], [id number], tel:[phone] [facility] No Information 5-200 9 Duran OD Matt. [address] [facility] , [address], [place], [place], [facility], [place]. tel:[phone] [facility], [address] [place] [address] [address], [place], [place], [id number], tel:[phone] [facility] No Information 2-200 9 Duran OD Matt. [address] , [address], [place], [address], [place]. tel:[phone] [facility], [address] [place] [address] [address], [place], [place], [id number], [place] tel:[phone] [facility] No Information 5-200 9 Duran OD Matt. [address] , [address], [place], [address], [place]. tel:[phone] Family History Family Member Type Diagnosis Age At Onset No Information Payers Payer name Insurance type Covered alliance party ID Authoriza tion(s) No Information Social [...]
--- OUTSIDE RECORDS SUMMARY | 2025-01-29 11:43 | XMS_ITS | Encounter Summary ---
Author Organization [employer] Address 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
--- OUTSIDE RECORDS SUMMARY | 2025-01-29 11:43 | XMS_ITS | Clinical Summary ---
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
--- OUTSIDE RECORDS SUMMARY | 2025-01-29 11:43 | XMS_ITS | Clinical Summary ---
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
--- OUTSIDE RECORDS SUMMARY | 2025-01-29 11:44 | XMS_ITS | Encounter Summary ---
Author Organization [employer] Address 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
--- OUTSIDE RECORDS SUMMARY | 2025-01-29 11:44 | XMS_ITS | Clinical Summary ---
Author Organization [facility] Address [address] [facility] [place] [address] Care Team Providers Care Nurses Educator Name Role Phone Husam Farris MD Primary Care Provider [phone] Source Comments [facility],non-owned Affiliates and Associated Physician Practices is amultiple site organization consisting of ambulatory clinics and hospital sitesin [place], [place], [place] and [place]. This disclosure is being madepursuant to the Care Everywhere program and may not contain all information available regarding this patient. 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
[2025-01-29 11:51] LABS: NT Pro B Type Natriuretic Pept 239 pg/mL (19.9-100)
== END 2025-01-29 10:28 | disposition home or self-care (01) ==
PROVIDERS: PCP Emergency Medicine; Visit Provider Emergency Medicine
DX: I08.1 Rheumatic disorders of both mitral and tricuspid valves (principal); R00.2 Palpitations; R60.9 Edema, unspecified; R06.01 Orthopnea; R79.89 Other specified abnormal findings of blood chemistry; Z13.228 Encounter for screening for other metabolic disorders
CPT/HCPCS: 36415; 83880; 93306

== ENCOUNTER 2025-05-19 09:52 | Emergency (ER) | payer MEDICARE, MEDICAID, SELFPAY ==
--- NOTE | 2025-05-19 09:59 | ED.GENADULT ---
HPI - General Adult General Chief complaint: Skin/Abscess/Foreign Body Stated complaint: Rash Time Seen by Provider: 05/19/25 09:59 Source: patient Mode of arrival: ambulatory Limitations: no limitations History of Present Illness HPI narrative: 59-year-old female patient presents to [facility] with complaints of a rash to the face for 1 month. States when the rash started she did have some leftover steroids and some steroids and Benadryl and it did go away a while. Patient states that the rash has come back up about 2 weeks ago and denies taking any [id number] antihistamines or Benadryl for the rash. Patient does have history of thyroid issues but denies any other autoimmune issues that she is aware of. Denies coming into contact with any new detergents soaps or lotions. Related Data Home Medications ?Medication ?Instructions ?Recorded ?Confirmed ?Last Taken ?Type estradiol 2 mg tablet mg 07/24/22 04/11/25 Unknown History Allergies Allergy/AdvReac Type Severity Reaction Status Date / Time nitrofurantoin Allergy Mild Hives Verified 05/19/25 10:05 meloxicam AdvReac Intermediate Swelling Verified 05/19/25 10:05 Review of Systems Review of Systems: CONSTITUTIONAL: Denies fever, chills, or sweats. EYES: Denies visual changes, redness, or discharge. ENT: Denies rhinorrhea, congestion, sore throat, or otalgia. CARDIOVASCULAR: Denies chest pain, palpitations, or edema. RESPIRATORY: Denies cough or dyspnea. GASTROINTESTINAL: Denies abdominal pain, nausea, vomiting, or diarrhea. GENITOURINARY: Denies dysuria or hematuria. SKIN: Positive rash with itching to face x1 month. MUSCULOSKELETAL: Denies back pain, joint pain, or myalgia. NEUROLOGIC: Denies headache, numbness, or weakness. PSYCHIATRIC: Denies anxiety or depression. ON LICENSE OF [facility] Past Medical History Medical History Earache on right Sinusitis Thyroid disorder Arthritis GERD (gastroesophageal reflux disease) Irritable bowel syndrome with diarrhea Generalized abdominal discomfort Dyspnea on exertion Steatosis of liver Need for hepatitis C screening test Palpitation Abnormal weight gain Acute bacterial sinusitis Acute cystitis with hematuria Acute non-recurrent frontal sinusitis Acute right-sided low back pain with sciatica Anemia, unspecified Anxiety and depression BMI 33.0-33.9,adult BMI 35.0-35.9,adult Back pain with sciatica Body mass index [BMI] 29.0-29.9, adult (11/22/17) Body mass index [BMI] 30.0-30.9, adult (02/28/18) Body mass index [BMI] 31.0-31.9, adult (12/20/17) Cellulitis of right lower leg Chronic UTI Chronic bilateral low back pain without sciatica Chronic nonintractable headache Dislocation of great toe, left, open Dislocation of great toe, left, open Disorder of kidney and ureter, unspecified Dizziness Dorsalgia, unspecified Edema, unspecified Elevated liver enzymes Fatigue Ganglion cyst Intervertebral disc disorder with radiculopathy of lumbar region Intracranial space-occupying lesion Iron deficiency anemia Localized edema Low sodium levels Moderate single current episode of major depressive disorder Mucous cyst of finger Other chronic pain Pain and swelling of left lower leg Pain and swelling of right lower leg Sweat, sweating, excessive Temporary low platelet count Unspecified Escherichia coli [E. coli] as the cause of diseases classified elsewhere Unspecified open wound of left great toe without damage to nail, initial encounter Upper respiratory tract infection Vitamin D deficiency Mucocele of lower lip Ovarian cyst delivery delivered Chronic pain Depression B12 deficiency Hypothyroidism (acquired) Surgical History Surgical History History of colonoscopy History of cholecystectomy History of esophagogastroduodenoscopy History of hysterectomy H/O section History of exploratory laparotomy Family History Family History Mother Cerebrovascular accident Family history of diabetes mellitus in first degree relative Diabetes mellitus Family history of kidney disease Family history of cardiovascular disease Uterine cancer Hypertension Depression Anxiety Father Cerebrovascular accident Family history of diabetes mellitus in first degree relative Diabetes mellitus Family history of cardiovascular disease Depression Anxiety Thyroid disorder Other Family history of throat cancer Social History Social History Social History: pt had a pap done in 2021 (normal), mammogram completed in -(pt is unsure - normal findings), she is sexually active - no contraceptive needed as she had a hysterectomy in . Smoking status: Never smoker Second hand tobacco smoke exposure: No Alcohol intake: current Drinks per week: 2 Alcohol use details: beer/mixed drinks - occasionally Substance use: current Substance use type: marijuana Current Housing: Decline to Answer Concerned About Future Housing: Decline to Answer Difficulty Paying Gas/Electric Bills: Decline to Answer Difficulty Paying for Meds: Decline to Answer Currently Unemployed: Decline to Answer Education: Decline to Answer Difficulty w/ Childcare or Family Care: Decline to Answer Living arrangements: alone Occupation/Education: other Additional occupation/education comments: Disable Gender identity (if verbalized by the patient): Female Sexual Orientation (if Verbalized by the Patient): Straight or Heterosexual Spiritual care concerns: No Agree to blood products: Yes Comments At the time of my signature I agree with nursing past medical history, surgical, social, and family history. There is no relevant family history pertinent to the presenting complaint. Exam Narrative: GENERAL: Well-appearing, well-nourished, and in no acute distress. HEAD: Normocephalic, atraumatic. EYES: PERRLA and EOMI. ENT: Nares clear, no rhinorrhea or epistaxis. Mucous membranes moist. NECK: Supple. No lymphadenopathy CHEST: Clear to auscultation. No respiratory distress. HEART: Regular rate and rhythm. No murmur heard. Normal peripheral pulses. ABDOMEN: Soft, nontender, nondistended, normal active bowel sounds. EXTREMITIES: Normal range of motion. No edema. SKIN: Warm, dry, patient has rash around bilateral eyes, bilateral cheeks and bilateral forehead. The rash appears slightly black Chi and is itchy. No open wounds or discharge noted. No eye involvement NEURO: No focal deficits. Alert and oriented x3. Course Course Level of Care: Express Care Visit Vital Signs Vital signs: Vital Signs Temperature 36.8 C 05/19/25 10:00 Pulse Rate 67 05/19/25 10:00 Respiratory Rate 18 05/19/25 10:00 Blood Pressure 124/77 05/19/25 10:00 Pulse Oximetry 99 05/19/25 10:00 Oxygen Delivery Room Air 05/19/25 10:00 Temperature 36.8 C 05/19/25 10:00 Pulse Rate 67 05/19/25 10:00 Respiratory Rate 18 05/19/25 10:00 Blood Pressure 124/77 05/19/25 10:00 Pulse Oximetry 99 05/19/25 10:00 Oxygen Delivery Room Air 05/19/25 10:00 Vital signs reviewed. Medical Decision Making MDM Narrative Medical decision making narrative: Plan care for patient is to discharge home with a prednisone taper to help with the rash to the face. Also recommended that patient take a daily antihistamine something such as Zyrtec, Claritin or Leila and highly recommend that she follow-up with her doctor to obtain more testing to see if she has some type of food allergy or possibly an autoimmune disorder that is causing ongoing rash. Differential Diagnosis Differential Diagnosis: Differential diagnosis: Contact dermatitis, poison albertina, poison sumac, psoriasis, eczema, allergic reaction, drug reaction, scabies, tinea syphilis, lung disease, viral exanthema, pityriasis, erythema multiforme. Vital Signs Vital Signs: Vital Signs Temperature 36.8 C 05/19/25 10:00 Pulse Rate 67 05/19/25 10:00 Respiratory Rate 18 05/19/25 10:00 Blood Pressure 124/77 05/19/25 10:00 Pulse Oximetry 99 05/19/25 10:00 Oxygen Delivery Room Air 05/19/25 10:00 Temperature 36.8 C 05/19/25 10:00 Pulse Rate 67 05/19/25 10:00 Respiratory Rate 18 05/19/25 10:00 Blood Pressure 124/77 05/19/25 10:00 Pulse Oximetry 99 05/19/25 10:00 Oxygen Delivery Room Air 05/19/25 10:00 Critical Care Time Critical Care Time Critical Care Time: No Discharge Plan Discharge Clinical Impression: Facial rash Patient Disposition: Home Condition: Stable Instructions: Antibiotic Form, Acute Rash (ED) Additional Instructions: Wash the area with soap and cool water only. Avoid scratching when possible to prevent worsening of the condition and disruption of the skin that could lead to bacterial infection To relieve itching, place a cool washcloth or some ice over the area that itches, rather than scratching Follow up with primary care provider or seek ER if you have trouble breathing, become hoarse, or start wheezing, develop belly cramps, vomiting or feel dizzy. Patient Language: Jamaican Prescriptions: New prednisone 10 mg tablets,dose pack See Rx Instructions .ROUTE .COMPLEX Qty: 48 0RF Rx Instructions: 50 mg x 3 days, 40 mg x 3 days, 30 mg x 3 days, 20 mg x 3 days, 10 mg x 3 days No Action estradiol 2 mg tablet colestipol 1 gram tablet See Rx Instructions .ROUTE .COMPLEX Qty: 180 3RF Dose Instruction: TAKE 1 TABLET BY MOUTH TWICE DAILY Rx Instructions: TAKE 1 TABLET BY MOUTH TWICE DAILY omeprazole 40 mg capsule,delayed release(DR/EC) See Rx Instructions .ROUTE .COMPLEX Qty: 90 3RF Dose Instruction: TAKE 1 CAPSULE BY MOUTH DAILY Rx Instructions: TAKE 1 CAPSULE BY MOUTH DAILY bupropion HCl 75 mg tablet See Rx Instructions .ROUTE .COMPLEX Qty: 90 2RF Dose Instruction: TAKE 1 TABLET BY MOUTH DAILY Rx Instructions: TAKE 1 TABLET BY MOUTH DAILY trazodone 50 mg tablet See Rx Instructions .ROUTE .COMPLEX Qty: 240 1RF Dose Instruction: TAKE 1 TABLET BY MOUTH TWICE DAILY Rx Instructions: TAKE 1 TABLET BY MOUTH TWICE DAILY tizanidine 4 mg tablet See Rx Instructions .ROUTE .COMPLEX Qty: 180 2RF Dose Instruction: TAKE 1 TABLET BY MOUTH TWICE DAILY Rx Instructions: TAKE 1 TABLET BY MOUTH TWICE DAILY levothyroxine 125 mcg tablet See Rx Instructions .ROUTE .COMPLEX Qty: 90 2RF Dose Instruction: TAKE 1 TABLET BY MOUTH DAILY Rx Instructions: TAKE 1 TABLET BY MOUTH DAILY sertraline 50 mg tablet See Rx Instructions .ROUTE .COMPLEX Qty: 90 2RF Dose Instruction: TAKE 1 TABLET BY MOUTH DAILY Rx Instructions: TAKE 1 TABLET BY MOUTH DAILY spironolactone 25 mg tablet See Rx Instructions .ROUTE .COMPLEX Qty: 90 2RF Dose Instruction: TAKE 1 TABLET BY MOUTH DAILY Rx Instructions: TAKE 1 TABLET BY MOUTH DAILY gabapentin 300 mg capsule See Rx Instructions .ROUTE .COMPLEX Qty: 270 2RF Dose Instruction: TAKE 1 CAPSULE BY MOUTH THREE TIMES DAILY Rx Instructions: TAKE 1 CAPSULE BY MOUTH THREE TIMES DAILY venlafaxine 150 mg capsule,extended release 24hr See Rx Instructions .ROUTE .COMPLEX Qty: 90 2RF Dose Instruction: TAKE 1 CAPSULE BY MOUTH DAILY Rx Instructions: TAKE 1 CAPSULE BY MOUTH DAILY metoprolol succinate 50 mg tablet extended release 24 hr See Rx Instructions .ROUTE .COMPLEX Qty: 90 2RF Dose Instruction: TAKE 1 TABLET BY MOUTH DAILY Rx Instructions: TAKE 1 TABLET BY MOUTH DAILY alprazolam 0.5 mg tablet 0.5 mg PO BID PRN (Reason: anxiety) Qty: 60 1RF Follow-up/Referrals: Husam Farris MD [Primary Care Provider] - Time of Disposition: 10:13
[2025-05-19 10:00] VITALS: BP 124/77; PULSE 67; RESP 18; TEMP 36.8; O2SAT 99
== END 2025-05-19 10:19 | disposition home or self-care (01) ==
PROVIDERS: Emergency Provider Nurse Practitioner Family; PCP Emergency Medicine
DX: R21 Rash and other nonspecific skin eruption (principal); K21.9 Gastro-esophageal reflux disease without esophagitis; K76.0 Fatty (change of) liver, not elsewhere classified; E03.9 Hypothyroidism, unspecified; F41.9 Anxiety disorder, unspecified; F32.A Depression, unspecified
CPT/HCPCS: 99213; G0463

== ENCOUNTER 2025-05-19 11:04 | Outpatient (CLI) | payer MEDICARE, MEDICAID, SELFPAY ==
--- NOTE | ~2025-05-19 | CT_ITS ---
EXAMINATION: CT lumbar spine wo con DATE: 05/19/2025 11:27 INDICATION: Radiculopathy TECHNIQUE: Computed tomography (CT) of the lumbar spine was performed without intravenous contrast. A utomated exposure control and iterative reconstruction technique were employed. The dose-length produ ct was 1106.87 mGy-cm. COMPARISON: 01/11/2024 FINDINGS: 12 degrees mid lumbar dextrocurvature and 10 degrees lower lumbar levocurvature. 4 mm retrolisthesis L5 on S1. Vertebral body heights are normal. No fractures. Severe disc height loss with vacuum phenom benja at L5-S1. Mild to moderate left-sided prominent disc height loss at L3-L4 and right-sided promine nt disc height loss at L4-L5. Mild to moderate anterior predominant disc height loss at T11-T12. Para vertebral soft tissues are unremarkable. The following disc levels are specifically discussed: T11-T12: Disc is minimally bulging. There is mild left and moderate right facet joint osteoarthritis. There is no neural foraminal stenosis. There is no central canal stenosis. T12-L1: The disc does not extend beyond the endplate margin. There is mild bilateral facet joint oste oarthritis. There is no neural foraminal stenosis. There is no central canal stenosis. L1-L2: The disc does not extend beyond the endplate margin. There is mild bilateral facet joint osteo arthritis. There is no neural foraminal stenosis. There is no central canal stenosis. L2-L3: The disc does not extend beyond the endplate margin. There is moderate left and mild to modera te right facet joint osteoarthritis. There is no neural foraminal stenosis. There is no central canal stenosis. L3-L4: Disc is bulging. There is mild bilateral facet joint osteoarthritis. There is mild right and m oderate left neural foraminal stenosis. There is mild central canal stenosis. L4-L5: Disc is bulging, eccentric to the right. There is mild left and moderate right facet joint ost eoarthritis. There is mild left and moderate right neural foraminal stenosis. There is mild central c anal stenosis along with mild narrowing of the right lateral recess. L5-S1: Disc does not extend beyond the more posterior L5 inferior endplate margin. There is altered l eft and moderate right facet joint osteoarthritis. There is moderate left and moderate to severe righ t neural foraminal stenosis. There is no central canal stenosis. IMPRESSION: 1. Severe spondylosis of the lumbosacral junction with moderate left-sided and moderate to severe rig ht-sided neural foraminal stenosis at this level. 2. Mild to moderate spondylosis and more cephalad lumbar and lower thoracic spine. Reviewed, dictated and finalized at location A. IMPRESSION: 1. Severe spondylosis of the lumbosacral junction with moderate left-sided and moderate to severe right-sided neural foraminal stenosis at this level. 2. Mild to moderate spondylosis and more cephalad lumbar and lower thoracic spi ne.
--- OUTSIDE RECORDS SUMMARY | 2025-05-19 11:10 | XMS_ITS | Patient Health Record ---
Author Organization [facility] [employer] Address [address] [place] [address] Support Name Relationship Address Phone BUD AKBAR Guarantor Unknown [phone] Reason For Referral No Information Medications Medication SIG (Take, Route, Frequency, Duration) Notes Start Date End Date Status Sertraline HCl 100 MG Oral 11/10/2021 Active buPROPion HCl 75 MG Oral 11/10/2021 Active Sertraline HCl 50 MG Oral 11/10/2021 Active traZODone HCl 50 MG Oral 11/10/2021 Active ARIPiprazole 5 MG Oral 11/10/2021 A ctive ALPRAZolam 0.5 MG Oral 11/10/2021 A ctive Topiramate 25 MG Oral 11/10/2021 Ac tive Estradiol 2 MG Oral 11/10/2021 Acti ve Fluticasone Propionate Diskus 50 MCG/ACT Inhalation *Reorder from [email or web address] for eRx and Interaction Alerts* 11/10/2021 Active Meloxicam 15 MG Oral 11/10/2021 Act olayinka Venlafaxine HCl ER 150 MG Oral 11/10/2021 Active Metoprolol Succinate ER 50 MG Oral 11/10/2021 Active tiZANidine HCl 4 MG Oral 11/10/2021 Active Spironolactone 25 MG Oral 11/10/2021 Active valACYclovir HCl 500 MG Oral 11/10/2021 Active Gabapentin 300 MG Oral 11/10/2021 A ctive Levothyroxine Sodium 75 MCG Oral 11/10/2021 Active Immunizations Vaccine Route Administration Date Status Comme nts Tdap Unknown 02/09/2017 Administered Plan Of Treatment No Information Insurance Providers Payer Name Payer Address Payer Phone Subscriber Number Group Number Insured Name Patient Relationship to Insured Coverage Start Date Coverage End Date [employer] [facility] Medicaid Replacement - [place] [address] [place] [phone] [id number] BUD AKBAR Self - patient is the insured Medical (General) History Surgical History Surgery Date(Month/Year) section (36699618) Laparoscopy (72648566) 10/18/1992 section (24496555) 10/18/1994 Hysterectomy (856272950) 10/18/1996 Cholecystectomy (48519654) 10/18/1999 Lysis of adhesions (11611343) 10/18/2000 Esophagogastroduodenoscopy (05040897) Incision of nerve (03984529) 10/18/2004 Discogram (51134164) 10/18/2004 Oophorectomy (99547550) 10/18/2006 Colonoscopy (14277357) 10/18/2020
--- OUTSIDE RECORDS SUMMARY | 2025-05-19 11:10 | XMS_ITS | Clinical Summary ---
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
--- OUTSIDE RECORDS SUMMARY | 2025-05-19 11:11 | XMS_ITS | Clinical Summary ---
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 Gender Identity Not on file Sexual Orientation Not on file Last Filed Vital Signs Vital Sign Reading Time Taken Comments Blood Pressure - - Pulse - - Temperature - - Respiratory Rate - - Oxygen Saturation - - Inhaled Oxygen Concentration - - Weight 103.4 kg (228 lb) 06/21/2019 3:14 PM CDT Height 175.3 cm (5' 9) 06/21/2019 3:14 PM CDT Body Mass Index 33.67 06/21/2019 3:14 PM CDT Plan of Treatment Health Maintenance Due Date Last Done Comments DTAP/TDAP/TD VACCINES (1 - Tdap) 1985 HEPATITIS B VACCINES (1 of 3 - 19+ 3-dose series) 06/19 HPV/Cotest (21-29) 1987 CERVICAL CANCER SCREENING 1996 HPV/Cotest (30-65) 1996 PAP SMEAR 1996 BREAST CANCER SCREENING 2006 COLORECTAL SCREENING 2011 Colorectal Cancer Screening 2011 FIT-DNA Q 3 years 2011 FIT/FOBT Q 1 year 2011 Flex Sig/CT Colonography Q 5 years 2011 ZOSTER VACCINE (1 of 2) 2016 INFLUENZA VACCINE (#1) 2025 Insurance MEDICARE PART A AND B [place]ICAID [place] Care Teams Online Advertising Analyst Relationship Specialty Start Date End Date Husam Farris MD [address] [place] [id number] PCP - General Internal Medicine 05/22/19
--- OUTSIDE RECORDS SUMMARY | 2025-05-19 11:11 | XMS_ITS | Encounter Summary ---
Author Organization [employer] Address 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
--- OUTSIDE RECORDS SUMMARY | 2025-05-19 11:11 | XMS_ITS | Encounter Summary ---
Author Organization [employer] Address 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
== END 2025-05-19 11:05 | disposition home or self-care (01) ==
PROVIDERS: PCP Emergency Medicine; Visit Provider Physical Medicine & Rehabilitation Pain Medicine
DX: M47.817 Spondylosis without myelopathy or radiculopathy, lumbosacral region (principal); M48.07 Spinal stenosis, lumbosacral region; M47.896 Other spondylosis, lumbar region; M47.894 Other spondylosis, thoracic region
CPT/HCPCS: 72131

== ENCOUNTER 2025-06-29 08:35 | Emergency (ER) | payer OTHER, MEDICARE, MEDICAID, SELFPAY ==
--- OUTSIDE RECORDS SUMMARY | 2008-11-22 10:30 | XMS_ITS | Continuity of Care Document ---
Author Organization [facility] [place] Address [address] [place] [address] Phone Care Team Providers Care Fertilizer Mixer Name Role Phone Duran OD, Matt Unavailable Unavailable Procedures Procedure Date No Charge Contact Lens Check No Charge Contact Lens Check Eye Exam & Treatment Refraction Advance Directives Directive Yes / No Effective Date File Name No Information Encounters Encounter Description Practice Location Reason(s) For Visit Diagnoses Date Provider Providers Copied on Encounter [facility], [address] [place] [address] [address], [place], [place], [id number], tel:[phone] [facility] No Information 5-200 9 Duran OD Matt. [address] , [address], [place], [place], [facility] [place] [facility] [place]. tel:[phone] [facility], [address] [place] [address] [address], [place], [place], [id number], tel:[phone] [facility] No Information 2-200 9 Duran OD Matt. [address] , [address], [place], [address], [place]. tel:[phone] [facility], [address] [place] [address] [address], [place], [place], [id number], [place] tel:[phone] [facility] No Information 5-200 9 Duran OD Matt. [address] , [address], [place], [address], [place]. tel:[phone] Family History Family Member Type Diagnosis Age At Onset No Information Payers Payer name Insurance type Covered libertarian ID Authoriza tion(s) No Information Social History Type Description Quantity Date Captured Comments Sex Female Smoking Status No Information Chief Complaint And Reason For Visit No Information Reason For Referral Reason For Referral No Information History Of Present Illness Encounter Date Complaint History Of Prese nt Illness No Information Functional Status Date Functional Assessmen t No Information Instructions Date Instruction Additional Infor mation No Information Assessments Type Assessment Date No Information Patient Care Teams Name Effective Dates (start - stop) Status Members No Information
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
[2025-06-29 08:38] VITALS: BP 136/86; PULSE 77; RESP 17; TEMP 36.8; O2SAT 98
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
--- OUTSIDE RECORDS SUMMARY | 2025-06-29 08:46 | XMS_ITS | Patient Health Record ---
Author Organization [facility] [employer] Address [address] [place] [address] Support Name Relationship Address Phone NAOMIE BUD Guarantor Unknown [phone] Reason For Referral No Information Medications Medication SIG (Take, Route, Frequency, Duration) Notes Start Date End Date Status Sertraline HCl 100 MG Tablet Oral 11/10/2021 Active buPROPion HCl 75 MG Tablet Oral 11/10/2021 Active Sertraline HCl 50 MG Tablet Oral 11/10/2021 Active traZODone HCl 50 MG Tablet Oral 11/10/2021 Active ARIPiprazole 5 MG Tablet Oral 11/10/2021 Active ALPRAZolam 0.5 MG Tablet Oral 11/10/2021 Active Topiramate 25 MG Tablet Oral 11/10/2021 Active Estradiol 2 MG Tablet Oral 11/10/2021 Active Fluticasone Propionate Diskus 50 MCG/ACT Aerosol Powder Breath Activated Inhalation *Reorder from [employer] for eRx and Interaction Alerts* 11/10/2021 Active Meloxicam 15 MG Tablet Oral 11/10/2021 Active Venlafaxine HCl ER 150 MG Capsule Extended Release 24 Hour Oral 11/10/2021 Active Metoprolol Succinate ER 50 MG Tablet Extended Release 24 Hour Oral 11/10/2021 Active tiZANidine HCl 4 MG Tablet Oral 11/10/2021 Active Spironolactone 25 MG Tablet Oral 11/10/2021 Active valACYclovir HCl 500 MG Tablet Oral 11/10/2021 Active Gabapentin 300 MG Capsule Oral 11/10/2021 Active Levothyroxine Sodium 75 MCG Tablet Oral 11/10/2021 Active Immunizations Vaccine Route Administration Date Status Comme nts Tdap Unknown 02/09/2017 Administered Social History Social History Additional Details Category Social Info Options Details Migrated Social History Migrated Social History Alcohol Intake: None 07/07/2021,Tobacco Years: Never smoker 07/07/2021 Plan Of Treatment No Information Insurance Providers Payer Name Payer Address Payer Phone Subscriber Number Group Number Insured Name Patient Relationship to Insured Coverage Start Date Coverage End Date Aetna [place] [employer] [place] Medicaid Replacement - [place] [address] TWYLA Bran [phone] [id number] NAOMIE BUD Self - patient is the insured Medical (General) History Surgical History Surgery Date(Month/Year) section (61026304) Laparoscopy (99778858) 10/18/1992 section (46884772) 10/18/1994 Hysterectomy (997577731) 10/18/1996 Cholecystectomy (29483028) 10/18/1999 Lysis of adhesions (21863193) 10/18/2000 Esophagogastroduodenoscopy (07117338) Incision of nerve (30818974) 10/18/2004 Discogram (31248273) 10/18/2004 Oophorectomy (48758723) 10/18/2006 Colonoscopy (89653232) 10/18/2020
--- OUTSIDE RECORDS SUMMARY | 2025-06-29 08:46 | XMS_ITS | Clinical Summary ---
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
--- OUTSIDE RECORDS SUMMARY | 2025-06-29 08:46 | XMS_ITS | Encounter Summary ---
Author Organization [facility] Address 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
--- OUTSIDE RECORDS SUMMARY | 2025-06-29 08:46 | XMS_ITS | Clinical Summary ---
Author Organization [facility] [employer] Address [address] [place] [address] Care Team Providers Care Lettuce Cutter Name Role Phone Husam Farris MD Primary Care Provider [phone] Source Comments [facility],non-owned Affiliates and Associated Physician Practices is amultiple site organization consisting of ambulatory clinics and hospital sitesin [place], [place], [place] and [place]. This disclosure is being madepursuant to the Care Everywhere program and may not contain all information available regarding this patient. 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 Gender Identity Not on file Sexual Orientation [...] - COLON CA SCREENING 1966 MAMMOGRAM 1966 HIV SCREENING 1981 HEPATITIS C SCREENING 07/03/1984 DTAP/TDAP/TD VACCINES (1 - Tdap) 1985 HEPATITIS B VACCINE (1 of 3 - 19+ 3-dose series) 1985 PNEUMOCOCCAL VACCINE 50+ (1 of 1 - PCV) 2016 ZOSTER VACCINE (1 of 2) 2016 DEPRESSION SCREENING 10/18/2024 COVID-19 VACCINE (1 - 2023-2 5 season) 2025 INFLUENZA VACCINE (#1) 2025 LIPID TESTING 05/01/2026 05/01/2021 HIB VACCINE [...] - OUT OF STATE MEDICARE Care Teams Lettuce Cutter Relationship Specialty Start Date End Date Husam Farris MD [facility] [address] [address] PCP - General 05/26/17
--- OUTSIDE RECORDS SUMMARY | 2025-06-29 08:46 | XMS_ITS | Encounter Summary ---
Author Organization [employer] Address 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
[2025-06-29] MEDS: HYDROcodone/acetaminophen (*CRX) 5-325 MG TABLET 1 TAB PO (10:21)
[2025-06-29 11:56] VITALS: BP 142/84; PULSE 84; RESP 16; O2SAT 98
== END 2025-06-29 11:58 | disposition home or self-care (01) ==
PROVIDERS: Emergency Provider Emergency Medicine; PCP Emergency Medicine
DX: S13.9XXA Sprain of joints and ligaments of unspecified parts of neck, initial encounter (principal); S20.229A Contusion of unspecified back wall of thorax, initial encounter; V89.2XXA Person injured in unspecified motor-vehicle accident, traffic, initial encounter
CPT/HCPCS: 70450; 71046; 71100; 72072; 72100; 72125; 99284; A9270

== ENCOUNTER 2025-07-11 09:22 | Outpatient (CLI) | payer MEDICARE, MEDICAID, SELFPAY ==
[2025-07-11 09:55] LABS: Hematocrit 37.6 % (37.0-47.0); Hemoglobin 12.7 g/dL (12.0-15.0); Immature Granulocyte Percent A 0.7 % (0-0.5); Lymphocytes Absolute Auto 2.03 K/mm3 (0.9-3.2); Mean Corpuscular HGB Conc 33.8 g/dl (32-36); Mean Corpuscular Hemoglobin 30.8 pg (26-34); Mean Corpuscular Volume 91.3 fl (80-100); Nucleated Red Blood Cells Absolute Auto 0.000 K/mm3 (0.0-0.012); Nucleated Red Blood Cells Perc 0.0 % (0.0-0.2); Platelet Count Result 179 k/mm3 (150-375); Red Blood Count 4.12 M/mm3 (4.2-5.4); White Blood Count 5.4 K/mm3 (4.5-10.0)
--- OUTSIDE RECORDS SUMMARY | 2025-07-11 10:04 | XMS_ITS | Patient Health Record ---
Author Organization [facility] [employer] Address [address] [place] [address] Support Name Relationship Address Phone BUD AKBAR Guarantor Unknown [phone] Reason For Referral No Information Medications Medication [...] Aerosol Powder Breath Activated Inhalation *Reorder from [employer] for eRx and Interaction Alerts* 11/10/2021 Active [...] Coverage End Date Aetna Better [employer] [place] Medicaid Replacement - [place]mo [address] [place] [phone] [id number] NAOMIE BUD Self - patient is the insured Medical (General) History Surgical History Surgery Date(Month/Year) section ([id number]) Laparoscopy (01031541) 10/18/1992 section (12376139) 10/18/1994 Hysterectomy (715270427) 10/18/1996 Cholecystectomy (31246660) 10/18/1999 Lysis of adhesions (02422474) 10/18/2000 Esophagogastroduodenoscopy (84410984) Incision of nerve (39003766) 10/18/2004 Discogram (65661091) 10/18/2004 Oophorectomy (61211119) 10/18/2006 Colonoscopy (79578814) 10/18/2020
--- OUTSIDE RECORDS SUMMARY | 2025-07-11 10:04 | XMS_ITS | Encounter Summary ---
Author Organization [employer] Address 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
--- OUTSIDE RECORDS SUMMARY | 2025-07-11 10:04 | XMS_ITS | Clinical Summary ---
Author Organization [facility] Address [address] [facility] [address] Care Team Providers Care Diamond Blender Name Role Phone Husam Farris MD Primary Care Provider [phone] Source Comments [facility],non-owned Affiliates and Associated Physician Practices is amultiple site organization consisting of ambulatory clinics and hospital sitesin [place], [place], [place] and [place]. This disclosure is being madepursuant to the Care Everywhere program and may not contain all information available regarding this patient. 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
--- OUTSIDE RECORDS SUMMARY | 2025-07-11 10:04 | XMS_ITS | Clinical Summary ---
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
--- OUTSIDE RECORDS SUMMARY | 2025-07-11 10:04 | XMS_ITS | Encounter Summary ---
Author Organization [facility] Address [address] [place] [address] Care Team Providers Care Kitchen Work Supervisor Name Role Phone Husam Farris MD Primary Care Provider Encounter Details Date Type Department Care Team (Late st Contact Info) Description 07/31/2002 Outpatient Historical [facility] DEPT Jaison Love MD [address] [facility] [address] [place], [place] [id number] BENIGN NEOPLASM BRAIN (CMS/HCC) (Primary Dx) Social History Tobacco Use Types Packs/Day Years Used Date Smoking Tobacco: Never Assessed Comments Unknown Sex and Gender Information Value Date Recorded Sex Assigned at Not on file Legal Sex Female 4:23 AM [employer]AGING [employer]ACH[employer] Gender Identity Not on file Sexual Orientation Not on file documented as of this encounter Plan of Treatment Not on file documented as of this encounter Visit Diagnoses Diagnosis Benign neoplasm of brain (CMS/HCC)- Primary Benign neoplasm of brain documented in this encounter Care Teams Kitchen Work Supervisor Relationship Specialty Start Date End Date Husam Farris MD [address] [place] [id number] PCP - General Internal Medicine 05/22/19 documented as of this encounter
[2025-07-11 10:34] LABS: Alanine Aminotransferase 38 U/L (6-35); Albumin Level 3.9 g/dL (3.5-5.1); Alkaline Phosphatase 69 U/L (38-126); Anion Gap 7 mmol/L (4-12); Aspartate Amino Transferase 46 U/L (14-36); Bilirubin,Total 0.7 mg/dL (0.2-1.3); Blood Urea Nitrogen 16 mg/dL (7-17); Calcium 8.4 mg/dL (8.4-10.2); Carbon Dioxide 28 mmol/L (22-30); Chloride 101 mmol/L (98-107); Cholesterol 175 mg/dL (0-200); Estimated Glomerular Filt Rate 57; Glucose 90 mg/dL (65-110); HDL Direct 76 mg/dL; Potassium 3.6 mmol/L (3.4-5.0); Sodium 136 mmol/L (137-145); Total Protein 6.8 g/dL (6.3-8.2); Triglycerides 309 mg/dL (<150)
[2025-07-11 11:09] LABS: Thyroid Stimulating Hormone 12.100 uIU/mL (0.465-4.680)
== END 2025-07-11 09:23 | disposition home or self-care (01) ==
PROVIDERS: PCP Emergency Medicine; Visit Provider Emergency Medicine
DX: E03.9 Hypothyroidism, unspecified (principal); E78.5 Hyperlipidemia, unspecified; R79.89 Other specified abnormal findings of blood chemistry; I10 Essential (primary) hypertension
CPT/HCPCS: 36415; 80053; 80061; 84443; 85025